=== PATIENT | male | born 1985 | race Caucasian/White ===

== ENCOUNTER 2019-05-24 14:35 | Emergency (ER) | payer SELFPAY ==
[2019-05-24 15:07] VITALS: BP 126/74; PULSE 62; RESP 16; TEMP 36.3; O2SAT 98
[2019-05-24 15:24] VITALS: BMI 25.5
[2019-05-24 15:28] VITALS: BP 138/96; PULSE 83; RESP 16; TEMP 36.8; O2SAT 96
--- NOTE | 2019-05-24 15:30 | XRR_ITS ---
PROCEDURE INFORMATION: Exam: XR Right Hand Exam date and time: 05/24/2019 4:05 PM Age: 33 years old Clinical indication: Injury or trauma; Injury history: Smashed hand with pallet of salt; Initial encounter; Blunt trauma (contusions or hematomas; Right; Injury date: 05/20/19; Prior surgery; Surgery date: 6+ months; Additional info: Right hand injury TECHNIQUE: Imaging protocol: XR Right hand. Views: 1 or 2 views. COMPARISON: No relevant prior studies available. FINDINGS: Bones/joints: Neck negative for acute bony abnormality Soft tissues: Diffuse soft tissue edema is seen in the dorsal aspect of the hand XR/XR hand RT min 3V* [id number] IMPRESSION: No acute bone abnormality. Diffuse soft tissue edema dorsal aspect of the hand
--- NOTE | 2019-05-24 16:10 | W.ED.EXTPRO ---
HPI - Extremity Problem General: Chief complaint: Trauma Stated complaint: right hand pain Time Seen by Provider: 05/24/19 16:10 Source: patient Mode of arrival: ambulatory Limitations: no limitations History of Present Illness: HPI Narrative: States a few days ago he was lifting a heavy pallet and immediately felt pain in the back of his right hand. States he is continued to work but has noticed continued pain and continued swelling. Complaint: extremity pain Onset (ago): day(s) Pain Consistency: constant Location: right Relieving factors: nothing Exacerbating factors: nothing Associated symptoms: Reports no associated symptoms Review of Systems Musc: Reports: extremity pain and extremity swelling Neuro: Denies: numbness in extremities, weakness in extremities or changes in sensation PFSH ED PFSH: Statuses (acute, chronic, etc) shown below reflect problem list status as previously entered and may not be historically accurate Social History Smoking and tobacco status: current every day smoker Physical Exam Const: COMMON NORMALS: no apparent distress, average body habitus, oriented x3, alert and well nourished Extremity: OTHER: Patient has pain and swelling throughout the dorsum of his right hand; there is no redness, warmth present; patient maintains full range of motion Neuro: COMMON NORMALS: oriented x3 SENSORIUM/ORIENTATION: Yes alert Course Vital Signs: Vital signs: Vital Signs Temperature 98.3 F 05/24/19 17:26 Pulse Rate 81 05/24/19 17:26 Respiratory Rate 14 05/24/19 17:26 Blood Pressure 142/93 05/24/19 17:26 Pulse Oximetry 99 05/24/19 17:26 MDM - Extremity (Nontraumatic) Imaging Data^: R hand: Radiologist's impression: [address] [address] XRay Report Signed Patient: Piyush Conway Unit #: [id number] : 1985 Age/Sex: 33 / M ADM Date: 05/24/19 Loc: ER Room/Bed: Attending Dr: Ordering Provider/Ordering MD: Jeffy Lang DO Date of Service: 05/24/19 Procedure(s): XR hand RT 2V 18880 Accession Number(s): [id number] Report Number: [id number] PROCEDURE INFORMATION: Exam: XR Right Hand Exam date and time: 05/24/2019 4:05 PM Age: 33 years old Clinical indication: Injury or trauma; Injury history: Smashed hand with pallet of salt; Initial encounter; Blunt trauma (contusions or hematomas; Right; Injury date: 05/20/19; Prior surgery; Surgery date: 6+ months; Additional info: Right hand injury TECHNIQUE: Imaging protocol: XR Right hand. Views: 1 or 2 views. COMPARISON: No relevant prior studies available. FINDINGS: Bones/joints: Neck negative for acute bony abnormality Soft tissues: Diffuse soft tissue edema is seen in the dorsal aspect of the hand XR/XR hand RT 2V [id number] IMPRESSION: No acute bone abnormality. Diffuse soft tissue edema dorsal aspect of the hand Dictated By: Carter Lomas Signed By: Carter Lomas Signed Date/Time: 05/24/19 163 DD/ 163 Discharge Plan Discharge Patient Disposition: Home, Self-Care Clinical Impression: Hand sprain Qualifiers: Encounter type: initial encounter Laterality: right Qualified Code(s): S63.91XA - Sprain of unspecified part of right wrist and hand, initial encounter Condition: Stable Discharge Orders: Discharge Order (Routine); Ordered 05/24/19 Ordered By: Trina Sandoval Discharge Diet: Usual diet Discharge Activity: Increase activity as tolerated Activity Restrictions/Additional Instructions: KELSIE WRAP MOTRIN DIRECTED ICE 15-20 MINS EVERY OTHER HOUR ELEVATE MUCH POSSIBLE FOLLOWUP WITH PRIMARY CARE IN 1 WEEK FOR CONTINUED PAIN Discharge Date/Time: 05/24/19 17:27 Coding Level of Care Code ED Deputy Sheriff Generalist for Yasmine Chavez
[2019-05-24 16:23] VITALS: BMI 25.8
[2019-05-24 17:26] VITALS: BP 142/93; PULSE 81; RESP 14; TEMP 36.8; O2SAT 99
== END 2019-05-24 17:27 | disposition home or self-care (01) ==
PROVIDERS: Emergency Provider Physician Assistant
DX: S63.91XA Sprain of unspecified part of right wrist and hand, initial encounter (principal); X50.0XXA Overexertion from strenuous movement or load, initial encounter; F17.210 Nicotine dependence, cigarettes, uncomplicated
CPT/HCPCS: 73120; 73130; 99281

== ENCOUNTER 2019-11-11 20:26 | Emergency (ER) | payer SELFPAY ==
[2019-11-11 20:28] VITALS: BP 148/96; PULSE 102; RESP 22; TEMP 36.9; O2SAT 95; BMI 24.3
--- NOTE | 2019-11-11 20:29 | ECG_ITS ---
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 Measurements Intervals [place] Rate: 109 P: 70 ID: 128 QRS: 71 QRSD: 86 T: 52 QT: 320 QTc: 431 Interpretive Statements SINUS TACHYCARDIA ABNORMAL RHYTHM ECG Compared to ECG 05/29/2016 10:14:20 Sinus rhythm no longer present Electronically Signed On 11-12-2019 8:04:46 CDT by Pedro Mistry M.D. [id number]
--- NOTE | 2019-11-11 20:51 | ED_ITS ---
HPI - Seizure General: Chief Complaint: Seizure Stated Complaint: etoh Time Seen by Provider: 11/11/19 20:26 Source: patient and EMS Mode of arrival: EMS Limitations: no limitations History of Present Illness: HPI Narrative: 4-year-old male who had a history of seizures in the past. He states he is to take Dilantin has not been taking it for years. Patient states he had a witnessed seizure tonight roughly 30 minutes ago. He denies any head pain states he feels much improved currently. He has no complaints currently. He states he drank 1 beer tonight. He denies any vomiting or diarrhea. MD complaint: seizure Onset (ago): minute(s) Associated symptoms: Deny chest pain, chills or fever(s) Review of Systems Const: Denies: fever(s), chills, body aches or change in appetite Eyes: Denies: blurry vision or eye discomfort ENMT: Denies: throat pain or dental pain Card: Denies: chest pain Resp: Denies: dyspnea GI: Denies: abdominal pain, nausea, vomiting or diarrhea : Denies: dysuria Musc: Denies: neck pain or back pain Skin/Breast: Denies: rash Neuro: Denies: headache(s) Psych: Denies: depression Jesús/Lymph: Denies: easy bruising All/Imm: Denies: urticaria PFSH ED PFSH: Social History Smoking and tobacco status: current every day smoker Physical Exam Const: COMMON NORMALS: no acute distress, patient oriented x3 and healthy appearing HENMT: COMMON NORMALS: normocephalic and atraumatic HEAD & SCALP: normocephalic and atraumatic Eye: COMMON NORMALS: Equal, round and reactive pupils present and EOMs intact bilaterally PUPIL: Yes Equal, round and reactive pupils present Neck/C-Spine: COMMON NORMALS: full ROM and supple Chest: COMMONS NORMALS: normal inspection of the chest and normal palpation of entire chest wall Resp: COMMON NORMALS: normal respiratory effort, No retractions, No use of accessory muscles and clear to auscultation bilaterally AUSCULTATION: clear to auscultation bilaterally Cardio: COMMON NORMALS: regular rate, regular rhythm and No murmurs present (Cardio) RATE: regular rate RHYTHM: regular rhythm GI: COMMON NORMALS: Normal to inspection, nondistended, normoactive bowel sounds present, Soft to palpation, non-tender and no masses PALPATION: Yes Soft to palpation Extremity: COMMON NORMALS: normal to inspection and full ROM Neuro: COMMON NORMALS: patient oriented x3, moves all extremities and no focal motor deficits Psych: COMMON NORMALS: mental status grossly normal, Normal thought process present and cooperative THOUGHT PROCESS: Normal thought process present Skin: COMMON NORMALS: no rashes or lesions noted and no wounds GENERAL SKIN EXAM: no rashes or lesions noted Course Vital Signs: Vital signs: Vital Signs Temperature 98.5 F 11/11/19 20:28 Pulse Rate 102 H 11/11/19 20:28 Respiratory Rate 22 H 11/11/19 20:28 Blood Pressure 148/96 11/11/19 20:28 Pulse Oximetry 95 11/11/19 20:28 MDM - Seizure MDM Narrative: Medical decision making narrative: Patient presents with a seizure. Patient electrolytes are normal here like to go home. We will start him back on Dilantin. He is to follow-up with a primary care doctor Dr. Schafer in 4 to 7 days. He is return if worsening. He had no head injury. Lab Data: Labs: Lab Results 11/11/19 Range/Units 20:34 Sodium 140 (136-145) mmol/L Potassium 3.7 (3.5-5.1) mmol/L Chloride 104 (98-107) mmol/L Carbon Dioxide 22 (22-29) mmol/L Anion Gap 17.7 (5-19) BUN 8 (6-20) mg/dL Creatinine 0.7 (0.7-1.2) mg/dL GFR Calculation 130.7 H (90-130) mL/min Glucose 107 (65-115) mg/dL Calculated Osmolal ity 286 (285-295) mOsm/k g Calcium 9.1 (8.5-10.5) mg/dL EKG Data^: EKG 1: Attestation: I personally reviewed and interpreted this EKG as follows: EKG interpretation date: 11/11/19 EKG interpretation time: 21:03 Interpretation: sinus tach hr [address] or t wave abnormalities qrs 86 qtc 384 Discharge Plan Discharge Patient Disposition: Home, Self-Care Clinical Impression: Generalized seizure Condition: Stable Prescriptions: New Dilantin Extended 100 mg capsule 100 mg PO DAILY Qty: 30 RF: 0 Discharge Orders: Discharge Order (Routine); Ordered 11/11/19 Ordered By: Torito Moscoso Referrals: Irina Schafer MD [Physician] - 1-3 days Discharge Diet: Advance as tolerated Discharge Activity: Resume usual activity Patient Instructions: Seizures Coding Level of Care Code ED Web Application Dev Specialist for Chg Fwd Exam Comprehensive
[2019-11-11 21:02] LABS: Anion Gap 17.7 (5-19); Blood Urea Nitrogen 8 mg/dL (6-20); Calcium 9.1 mg/dL (8.5-10.5); Carbon Dioxide 22 mmol/L (22-29); Chloride 104 mmol/L (98-107); Glomerular Filtration Rate 130.7 mL/min (90-130); Glucose 107 mg/dL (65-115); Osmolality Calculated 286 mOsm/kg (285-295); Potassium 3.7 mmol/L (3.5-5.1); Sodium 140 mmol/L (136-145)
--- NOTE | 2019-11-12 05:00 | PC.NURSE ---
upon ED arrival, pt slightly confused, unaware of events leading to arrival, oriented to self. Pt did state he did have hx of sz but it has been a couple of years since he last had one. Pt did state he has been out of his meds for a while , but he did not think he needed to still take them. After initial assessment, pt becoming more oriented, GCS 15, stating he no longer wanted to stay in the ED. Pt able to answer questions regarding self, time and place. notified. agreeable to d/c with Rx for dilantin. Pt answered questions during d/c, left dept without further incident
[2019-11-12 05:08] VITALS: BP 140/90; PULSE 86; RESP 18; O2SAT 95
--- NOTE | 2019-11-12 05:14 | PC.NURSE ---
i agree with this assessment
== END 2019-11-11 21:22 | disposition home or self-care (01) ==
PROVIDERS: Emergency Provider Emergency Medicine
DX: G40.89 Other seizures (principal); F17.210 Nicotine dependence, cigarettes, uncomplicated
CPT/HCPCS: 12345; 80048; 93005; 99283

== ENCOUNTER 2019-11-26 14:57 | Emergency (ER) | payer SELFPAY ==
--- NOTE | 2019-11-26 15:13 | CTR_ITS ---
PROCEDURE INFORMATION: Exam: CT Head Without Contrast Exam date and time: 11/26/2019 3:30 PM Age: 34 years old Clinical indication: Syncope and collapse; Patient HX: Syncope vs seizure HX of seizure 13 years ago TECHNIQUE: Imaging protocol: Computed tomography of the head without contrast. Radiation optimization: All CT scans at this facility use at least one of these dose optimization techniques: automated exposure control; mA and/or kV adjustment per patient size (includes targeted exams where dose is matched to clinical indication); or iterative reconstruction. COMPARISON: No relevant prior studies available. RADIATION DOSE METRICS: Total DLP (mGy-cm): 740.09 FINDINGS: Brain: No hemorrhage. No edema, mass effect or midline shift. Ventricles: No ventriculomegaly. Bones/joints: No acute fracture. Sinuses: Mucosal opacification of the ethmoid air cells. Mild mucosal thickening of the sphenoid sinuses. Mastoid air cells: No mastoid effusion. Soft tissues: Unremarkable. CT/CT head wo con* [id number] IMPRESSION: No acute intracranial abnormality. Radiation Dose CTDIVOL = (mGy): DLP = 740.09 (mGy-cm)
[2019-11-26] MEDS: sodium chloride 0.9% 1,000 ML 999 ML IV (15:27)
[2019-11-26 15:28] VITALS: BP 139/99; PULSE 103; RESP 18; O2SAT 95
--- NOTE | 2019-11-26 15:29 | W.ED.SEIZURE ---
HPI - Seizure General: Chief Complaint: Seizure Stated Complaint: SEIZURE Time Seen by Provider: 11/26/19 15:12 History of Present Illness: HPI Narrative: Patient has had at least one seizure today. He was postictal initially upon arrival to the ER shortly became awake alert and oriented. Patient admits to alcohol consumption today. MD complaint: seizure Onset (ago): minute(s) Description of Episode: loss of consciousness and tonic-clonic movement Witnessed: Yes - by Bystander Trauma: No Seizure History: Yes Possible Precipitating Event: stress Treatments prior to arrival: none Review of Systems General: Reports: 10 or more systems reviewed and unremarkable except in HPI and below PFSH ED PFSH: Social History Smoking and tobacco status: current every day smoker Physical Exam Const: COMMON NORMALS: no acute distress, patient oriented x3, no limitations and alert HENMT: COMMON NORMALS: normocephalic, atraumatic, external ears normal and Normal external nose present HEAD & SCALP: normocephalic and atraumatic FACE & SINUS: normal facial exam NOSE: Normal external nose present EXTERNAL EAR: Yes external ears normal MOUTH: Normal oral and palatal mucosa present Neck/C-Spine: COMMON NORMALS: full ROM, no lymphadenopathy, supple, no meningeal signs and no JVD GENERAL: Yes normal visual inspection Resp: COMMON NORMALS: normal respiratory effort, No retractions, No use of accessory muscles and clear to auscultation bilaterally AUSCULTATION: clear to auscultation bilaterally Cardio: COMMON NORMALS: no JVD, regular rate and regular rhythm RATE: regular rate RHYTHM: regular rhythm GI: COMMON NORMALS: Normal to inspection, nondistended, normoactive bowel sounds present, Soft to palpation, non-tender, No hepatosplenomegaly present and no masses INSPECTION: Yes normal to inspection AUSCULTATION: Yes normoactive bowel sounds PALPATION: Yes Soft to palpation and Yes No hepatosplenomegaly present PERCUSSION: normal to percussion : COMMON NORMALS: Yes no CVA tenderness BLADDER/KIDNEY EXAM: Yes no CVA tenderness Back/Pelvis: COMMON NORMALS: no CVA tenderness, thoracic and lumbar spine normal to inspection, no thoracic nor lumbar tenderness, thoraco-lumbar ROM normal and straight leg raise negative bilaterally Extremity: COMMON NORMALS: normal to inspection, full ROM, capillary refill normal, no joint enlargement, no clubbing, cyanosis or edema, no calf tenderness and no pedal edema Neuro: COMMON NORMALS: patient oriented x3, moves all extremities, no focal motor deficits and no sensory deficits noted SENSORIUM/ORIENTATION: Yes alert MENINGEAL SIGNS: Yes no meningeal signs Psych: COMMON NORMALS: mental status grossly normal, Normal thought process present, cooperative, normal affect and speech normal SPEECH: Yes normal speech THOUGHT PROCESS: Normal thought process present Skin: COMMON NORMALS: no rashes or lesions noted, no wounds, turgor normal, no jaundice, no petechiae and no mottling GENERAL SKIN EXAM: no rashes or lesions noted and turgor normal Course Vital Signs: Vital signs: Vital Signs Pulse Rate 103 H 11/26/19 15:28 Respiratory Rate 18 11/26/19 15:28 Blood Pressure 139/99 11/26/19 15:28 Pulse Oximetry 95 11/26/19 15:28 MDM - Seizure Lab Data: Labs: Lab Results 11/26/19 Range/Units 14:48 WBC 7.6 (4.0-10.0) 10^3/ uL RBC 4.82 (4.1-5.3) 10^6/u L Hgb 16.7 H (11.7-16.6) g/dL Hct 48.1 (42.0-52.0) % MCV 99.8 H (80-94) fL MCH 34.6 H (28.0-34.0) pg MCHC 34.7 (30.0-36.0) g/dL RDW 12.2 (12.1-15.1) % Plt Count 287 (130-400) 10^3/c mm MPV 9.8 (7.4-10.4) fL Neut % (Auto) 44.2 % Lymph % (Auto) 43.8 % [place] % (Auto) 9.2 % Eos % (Auto) 1.3 % Baso % (Auto) 0.8 % Neut # (Auto) 3.36 (1.8-7.7) 10^3/u L Lymph # (Auto) 3.3 (0.8-4.8) 10^3/u L [place] # (Auto) 0.7 (0.2-0.9) 10^3/u L Eos # (Auto) 0.1 (0.0-0.8) 10^3/u L Baso # (Auto) 0.1 (0.0-0.1) 10^3/u L Nucleated RBC % (a uto) 0 % Nucleated RBCs # 0.0 /100WBC Discharge Plan Discharge Patient Disposition: Left Against Medical Advice Clinical Impression: Generalized seizure Condition: Stable Prescriptions: No Action Dilantin Extended 100 mg capsule 100 mg PO DAILY Qty: 30 RF: 0 Coding Level of Care Code ED Non Profit Director for Chg Fwd Exam Comprehensive
[2019-11-26 15:40] LABS: Basophils # 0.1 10^3/uL (0.0-0.1); Basophils % 0.8 %; Eosinophils # 0.1 10^3/uL (0.0-0.8); Eosinophils % 1.3 %; Hematocrit 48.1 % (42.0-52.0); Hemoglobin 16.7 g/dL (11.7-16.6); Lymphocytes # 3.3 10^3/uL (0.8-4.8); Lymphocytes % 43.8 %; Mean Corpuscular HGB Conc 34.7 g/dL (30.0-36.0); Mean Corpuscular Hemoglobin 34.6 pg (28.0-34.0); Mean Corpuscular Volume 99.8 fL (80-94); Mean Platelet Volume 9.8 fL (7.4-10.4); Monocytes # 0.7 10^3/uL (0.2-0.9); Monocytes % 9.2 %; Neutrophils # 3.36 10^3/uL (1.8-7.7); Neutrophils % 44.2 %; Nucleated Red Blood Cells % 0 %; Platelet Count 287 10^3/cmm (130-400); Red Blood Count 4.82 10^6/uL (4.1-5.3); Red Cell Distribution Width 12.2 % (12.1-15.1); White Blood Count 7.6 10^3/uL (4.0-10.0)
[2019-11-26 15:54] LABS: Lactate (Lactic Acid level) 2.1 mmol/L (0.5-2.2)
[2019-11-26 16:04] LABS: Alanine Aminotransferase 40 U/L (0-41); Albumin Level 4.7 g/dL (3.5-5.2); Alkaline Phosphatase 118 IU/L (40-130); Anion Gap 16.7 (5-19); Aspartate Amino Transferase 32 U/L (0-40); Blood Urea Nitrogen 8 mg/dL (6-20); Calcium 8.1 mg/dL (8.5-10.5); Carbon Dioxide 24 mmol/L (22-29); Chloride 108 mmol/L (98-107); Globulin 2.7 g/dL (1.3-4.6); Glucose 94 mg/dL (65-115); Lipase 30 U/L (13-60); Osmolality Calculated 296 mOsm/kg (285-295); Potassium 3.7 mmol/L (3.5-5.1); Sodium 145 mmol/L (136-145); Thyroid Stimulating Hormone 0.88 uIU/mL (0.27-4.20); Total Bilirubin 0.2 mg/dL (0.15-1.2); Total Protein 7.4 g/dL (6.6-8.7)
[2019-11-26 16:07] LABS: Alcohol Level 330 mg/dL (0-10)
== END 2019-11-26 15:54 | disposition left against medical advice (07) ==
LOC: ER 17:00
PROVIDERS: Emergency Provider Family Medicine
DX: G40.89 Other seizures (principal); Z53.21 Procedure and treatment not carried out due to patient leaving prior to being seen by health care provider; F17.210 Nicotine dependence, cigarettes, uncomplicated
CPT/HCPCS: 12345; 36415; 70450; 80053; 80307; 83605; 83690; 84443; 85025; 96360; 99283; J7030

== ENCOUNTER 2019-11-26 18:45 | Emergency (ER) | payer SELFPAY ==
[2019-11-26 18:49] VITALS: BMI 24.6
--- NOTE | 2019-11-26 18:50 | ED_ITS ---
HPI - Chest Pain General: Chief Complaint: Chest Pain Stated Complaint: CHEST PAIN Time Seen by Provider: 11/26/19 18:50 Source: patient Mode of arrival: EMS Limitations: no limitations History of Present Illness: HPI narrative: Patient is a 34-year-old male who presents to ED today for complaint of chest pain and palpitations as well as a fall. Patient was seen here earlier today after having a seizure and ended up leaving AMA. Patient does have a diagnosis of epilepsy. He was seen in our emergency department on 11/16 as well for complaints of a seizure and was placed back on his Dilantin that he had been off of for several years. Patient tells me after he got home he was standing and became very dizzy causing him to fall down a flight of stairs. Patient tells me he does recall the event fully. He states before the fall he began having chest pain and feeling like his heart was beating out of his chest. He states he is no longer having those symptoms. He reports neck pain following the fall. MD complaint: chest pain and other (Palpitations, seizure, fall) Associated symptoms: Reports palpitations; Deny abdominal pain, dyspnea, fever(s), nausea, syncope or vomiting Review of Systems Const: Denies: fever(s), chills, body aches or fatigue Eyes: Denies: change in vision, blurry vision, photophobia, floaters or seeing flashes Card: Reports: chest pain, palpitations, lightheadedness and pre-syncope; Denies: irregular heart rhythm, edema, swelling of feet/ankles, syncope, dyspnea on exertion, orthopnea, leg pain with exertion or acrocyanosis Resp: Denies: dyspnea, productive cough, non-productive cough, pain on inspiration, hemoptysis or chest congestion GI: Denies: abdominal pain, nausea, vomiting, hematemesis, heartburn or diarrhea : Denies: flank pain, difficulty urinating, dysuria, urinary frequency, urinary urgency, urinary hesitancy or urinary dribbling Musc: Reports: neck pain; Denies: back pain, extremity pain, extremity swelling, joint pain or joint swelling Skin/Breast: Denies: rash Neuro: Denies: headache(s), numbness in extremities, weakness in extremities, sensory changes, vertigo or confusion PFS ED PFSH: Social History (Reviewed 07/26/20 @ 15:30 by ELROY Ferguson Smoking and tobacco status: current every day smoker Physical Exam Const: COMMON NORMALS: no acute distress, average body habitus, patient oriented x3, no limitations, healthy appearing, alert and well nourished ORIENTATION/CONSCIOUSNESS: Yes oriented to person, Yes oriented to place and Yes oriented to time HENMT: COMMON NORMALS: normocephalic and atraumatic HEAD & SCALP: normocephalic and atraumatic FACE & SINUS: normal facial exam and sinuses nontender Eye: COMMON NORMALS: Equal, round and reactive pupils present, EOMs intact bilaterally, conjunctivae normal and no scleral icterus CONJUNCTIVA: Yes conjunctivae normal PUPIL: Yes Equal, round and reactive pupils present Neck/C-Spine: OTHER: arrives in c-collar; ROM not performed; pt TTP upper/mid c spine and L paraspinal muscles Chest: COMMONS NORMALS: normal inspection of the chest and normal palpation of entire chest wall Resp: COMMON NORMALS: normal respiratory effort and clear to auscultation bilaterally AUSCULTATION: clear to auscultation bilaterally Cardio: COMMON NORMALS: regular rate and regular rhythm RATE: regular rate RHYTHM: regular rhythm GI: COMMON NORMALS: Normal to inspection, nondistended, normoactive bowel sounds present, Soft to palpation, non-tender, No hepatosplenomegaly present and no masses PALPATION: Yes Soft to palpation and Yes No hepatosplenomegaly present Back/Pelvis: COMMON NORMALS: thoracic and lumbar spine normal to inspection, no thoracic nor lumbar tenderness and thoraco-lumbar ROM normal Extremity: COMMON NORMALS: normal to inspection and full ROM GENERAL: Yes normal exam except as noted Neuro: TUAN COMA SCALE: document GCS findings [place] coma scale eye opening: Spontaneous [place] coma scale verbal response: Orientated [place] coma scale motor response: Obey commands [place] coma scale total score: 15 COMMON NORMALS: patient oriented x3, CN's II-XII intact bilaterally, moves all extremities, no focal motor deficits, no sensory deficits noted and gait normal SENSORIUM/ORIENTATION: Yes alert, Yes oriented to person, Yes oriented to place and Yes oriented to time Skin: COMMON NORMALS: no rashes or lesions noted GENERAL SKIN EXAM: no rashes or lesions noted Course Vital Signs: Vital signs: Vital Signs Temperature 98.0 F 11/26/19 18:57 Pulse Rate 87 11/26/19 19:50 Respiratory Rate 16 11/26/19 19:32 Blood Pressure 126/84 11/26/19 19:55 Pulse Oximetry 96 11/26/19 19:50 MDM - Chest Pain MDM Narrative: Medical decision making narrative: Patient is leaving AMA yet again. Patient tells me he is tired and would like to go home. Patient was counseled on the risks of leaving AMA including neck injury/paralysis/ (patient removed his c-collar on his own), head injury, repeat seizures, status epilepticus, cardiac ischemia. Patient verbalizes understanding and would still like to leave AMA. Lab Data: Labs: Lab Results 11/26/19 11/26/19 11/26/19 Range/Units 19:22 19:22 19:22 WBC 7.4 (4.0-10.0) 10^3/ uL RBC 4.51 (4.1-5.3) 10^6/u L Hgb 15.9 (11.7-16.6) g/dL Hct 46.0 (42.0-52.0) % MCV 102.0 H (80-94) fL MCH 35.3 H (28.0-34.0) pg MCHC 34.6 (30.0-36.0) g/dL RDW 12.3 (12.1-15.1) % Plt Count 274 (130-400) 10^3/c mm MPV 9.3 (7.4-10.4) fL Neut % (Auto) 50.5 % Lymph % (Auto) 38.6 % [place] % (Auto) 8.4 % Eos % (Auto) 0.9 % Baso % (Auto) 0.9 % Neut # (Auto) 3.74 (1.8-7.7) 10^3/u L Lymph # (Auto) 2.9 (0.8-4.8) 10^3/u L [place] # (Auto) 0.6 (0.2-0.9) 10^3/u L Eos # (Auto) 0.1 (0.0-0.8) 10^3/u L Baso # (Auto) 0.1 (0.0-0.1) 10^3/u L Nucleated RBC % (a uto) 0 % Nucleated RBCs # 0.0 /100WBC Sodium 142 (136-145) mmol/L Potassium 3.8 (3.5-5.1) mmol/L Chloride 106 (98-107) mmol/L Carbon Dioxide 23 (22-29) mmol/L Anion Gap 16.8 (5-19) BUN 8 (6-20) mg/dL Creatinine 1.0 (0.7-1.2) mg/dL GFR Calculation 86.6 L (90-130) mL/min Glucose 103 (65-115) mg/dL Calculated Osmolal ity 290 (285-295) mOsm/k g Calcium 8.6 (8.5-10.5) mg/dL Total Bilirubin 0.2 (0.15-1.2) mg/dL AST 26 (0-40) U/L ALT 34 (0-41) U/L Alkaline Phosphata se 107 (40-130) IU/L Troponin T Baselin e 6 (0-15) ng/L Total Protein 6.8 (6.6-8.7) g/dL Albumin 4.8 (3.5-5.2) g/dL Globulin 2.0 (1.3-4.6) g/dL Salicylates 1.4 L (3-10) mg/dL Acetaminophen < 5.0 L (10-30) ug/mL Ethyl Alcohol 286 H (0-10) mg/dL Discharge Plan Discharge Patient Disposition: Left Against Medical Advice Clinical Impression: Generalized seizure, Heart palpitations, Acute alcohol intoxication, Dizziness, Acute neck pain Prescriptions: No Action Dilantin Extended 100 mg capsule 100 mg PO DAILY Qty: 30 RF: 0 Interventions: ED Discharge Assessment Last Done: 11/26/19 19:58 ED Charges Last Done: 11/26/19 19:58 Discharge Date/Time: 11/26/19 19:56 Coding Level of Care Code ED Kindergarten Paraprofessional for Yasmine Chavez
[2019-11-26 18:57] VITALS: BP 127/89; PULSE 107; RESP 16; TEMP 36.7; O2SAT 95
--- NOTE | 2019-11-26 19:00 | CTR_ITS ---
PROCEDURE INFORMATION: Exam: CT Head Without Contrast Exam date and time: 11/26/2019 7:11 PM Age: 34 years old Clinical indication: Injury or trauma; Initial encounter; Blunt trauma (contusions or hematomas); Consciousness not specified; Patient HX: Syncope episode resulting in fall down stairs; Additional info: Trauma/fell TECHNIQUE: Imaging protocol: Computed tomography of the head without contrast. Axial, coronal and sagittal reformatted images were created and reviewed. Radiation optimization: All CT scans at this facility use at least one of these dose optimization techniques: automated exposure control; mA and/or kV adjustment per patient size (includes targeted exams where dose is matched to clinical indication); or iterative reconstruction. COMPARISON: CT head wo con* [id number] 11/26/2019 3:24 PM RADIATION DOSE METRICS: Total DLP (mGy-cm): 742.25 FINDINGS: Brain: No CT evidence of acute intracranial hemorrhage or acute territorial infarction. No significant mass effect or midline shift. Basal cisterns patent. Ventricles: Normal in size and configuration. Bones/joints: No acute osseous abnormality. Sinuses: Mild to moderate polypoid mucosal thickening of the ethmoid air cells and paranasal sinuses. Mastoid air cells: Grossly unremarkable. Soft tissues: Grossly unremarkable. CT/CT head wo con* [id number]: 1[address] No CT evidence of acute intracranial pathology. 2. Additional findings, as above. Radiation Dose CTDIVOL = (mGy): DLP = 742.25 (mGy-cm)
--- NOTE | 2019-11-26 19:00 | CTR_ITS ---
PROCEDURE INFORMATION: Exam: CT Cervical Spine Without Contrast Exam date and time: 11/26/2019 7:11 PM Age: 34 years old Clinical indication: Injury or trauma; Initial encounter; Blunt trauma; Patient HX: Syncope episode resulting in fall down stairs; Additional info: Trauma/fell TECHNIQUE: Imaging protocol: Computed tomography images of the cervical spine without contrast. Axial, coronal and sagittal reformatted images were created and reviewed. Radiation optimization: All CT scans at this facility use at least one of these dose optimization techniques: automated exposure control; mA and/or kV adjustment per patient size (includes targeted exams where dose is matched to clinical indication); or iterative reconstruction. COMPARISON: No relevant prior studies available. RADIATION DOSE METRICS: Total DLP (mGy-cm): 544.91 FINDINGS: Vertebrae: Straightening of the normal cervical lordosis. Alignment anatomic. No CT evidence of acute fracture, dislocation or subluxation. Vertebral body heights maintained. Discs/Spinal canal/Neural foramina: Intervertebral disc spaces preserved. No significant spinal canal or neural foraminal stenosis. Soft tissues: Grossly unremarkable. Lungs: Grossly unremarkable. CT/CT cervical spin wo con* [id number] IMPRESSION: 1. No CT evidence of acute cervical spine traumatic injury. 2. Additional findings, as above. Radiation Dose CTDIVOL = (mGy): DLP = 544.91 (mGy-cm)
--- NOTE | 2019-11-26 19:01 | ECG_ITS ---
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 Measurements Intervals [place] Rate: 86 P: 67 CT: 153 QRS: 66 QRSD: 91 T: 45 QT: 340 QTc: 407 Interpretive Statements SINUS RHYTHM WITH SINUS ARRHYTHMIA Compared to ECG 11/11/2019 21:03:14 Sinus tachycardia no longer present Electronically Signed On 11-27-2019 21:29:15 CDT by Sivan Mercado M.D. [id number] f
[2019-11-26] MEDS: sodium chloride 0.9% 1,000 ML 999 ML IV (19:20)
[2019-11-26 19:29] LABS: Basophils # 0.1 10^3/uL (0.0-0.1); Basophils % 0.9 %; Eosinophils # 0.1 10^3/uL (0.0-0.8); Eosinophils % 0.9 %; Hemoglobin 15.9 g/dL (11.7-16.6); Lymphocytes # 2.9 10^3/uL (0.8-4.8); Lymphocytes % 38.6 %; Mean Corpuscular HGB Conc 34.6 g/dL (30.0-36.0); Mean Corpuscular Hemoglobin 35.3 pg (28.0-34.0); Mean Platelet Volume 9.3 fL (7.4-10.4); Monocytes # 0.6 10^3/uL (0.2-0.9); Monocytes % 8.4 %; Neutrophils # 3.74 10^3/uL (1.8-7.7); Neutrophils % 50.5 %; Nucleated Red Blood Cells % 0 %; Platelet Count 274 10^3/cmm (130-400); Red Blood Count 4.51 10^6/uL (4.1-5.3); Red Cell Distribution Width 12.3 % (12.1-15.1); White Blood Count 7.4 10^3/uL (4.0-10.0)
[2019-11-26 19:32] VITALS: BP 135/96; PULSE 100; RESP 16; O2SAT 95
--- NOTE | 2019-11-26 19:36 | PC.NURSE ---
patient to CT
[2019-11-26 19:42] VITALS: BP 126/84
[2019-11-26 19:45] VITALS: BP 126/84
[2019-11-26 19:45] LABS: Alanine Aminotransferase 34 U/L (0-41); Albumin Level 4.8 g/dL (3.5-5.2); Alcohol Level 286 mg/dL (0-10); Alkaline Phosphatase 107 IU/L (40-130); Anion Gap 16.8 (5-19); Aspartate Amino Transferase 26 U/L (0-40); Blood Urea Nitrogen 8 mg/dL (6-20); Calcium 8.6 mg/dL (8.5-10.5); Carbon Dioxide 23 mmol/L (22-29); Chloride 106 mmol/L (98-107); Glomerular Filtration Rate 86.6 mL/min (90-130); Glucose 103 mg/dL (65-115); Osmolality Calculated 290 mOsm/kg (285-295); Potassium 3.8 mmol/L (3.5-5.1); Salicylate 1.4 mg/dL (3-10); Sodium 142 mmol/L (136-145); Total Bilirubin 0.2 mg/dL (0.15-1.2); Total Protein 6.8 g/dL (6.6-8.7)
--- NOTE | 2019-11-26 19:45 | PC.NURSE ---
patient back from CT
[2019-11-26 19:47] LABS: Troponin(5th) Baseline 6 ng/L (0-15)
[2019-11-26 19:48] LABS: Acetaminophen < 5.0 ug/mL (10-30)
[2019-11-26 19:50] VITALS: BP 126/84; PULSE 87; O2SAT 96
[2019-11-26 19:55] VITALS: BP 126/84
== END 2019-11-26 19:56 | disposition left against medical advice (07) ==
PROVIDERS: Emergency Provider Physician Assistant
DX: R00.2 Palpitations (principal); G40.89 Other seizures; F10.129 Alcohol abuse with intoxication, unspecified; R42 Dizziness and giddiness; M54.2 Cervicalgia; Y90.8 Blood alcohol level of 240 mg/100 ml or more; F17.210 Nicotine dependence, cigarettes, uncomplicated
CPT/HCPCS: 12345; 36415; 70450; 72125; 80053; 80307; 84484; 85025; 93005; 96360; 99283; 99284; J7030

== ENCOUNTER 2019-12-13 01:39 | Inpatient (IN) | payer SELFPAY ==
[2019-12-13] VITALS (94 sets, daily range): BP systolic 88–200; BP diastolic 58–121; PULSE 52–114; RESP 6–38; TEMP 36.6–37.2; O2SAT 88–100; BMI 21.7
--- NOTE | 2019-12-13 01:51 | XR_ITS ---
WS: [id number] Portable AP supine chest, 12/13/2019 Clinical Data: ams Comparison: Portable chest, 05/29/2016. Findings: No nodules, masses or effusions are seen. The heart is normal. The pulmonary vascularity is not increased. No pneumonia or pneumothorax is seen. Monitor leads are on the chest wall. XR/XR chest 1V portable [id number] Impression: Negative chest.
--- NOTE | 2019-12-13 01:52 | ECG_ITS ---
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 Measurements Intervals [place] Rate: 102 P: 66 NE: 153 QRS: 66 QRSD: 91 T: 50 QT: 338 QTc: 441 Interpretive Statements SINUS TACHYCARDIA ABNORMAL RHYTHM ECG Compared to ECG 11/26/2019 19:31:15 Sinus rhythm no longer present Sinus arrhythmia no longer present Electronically Signed On 12-13-2019 21:22:37 CDT by Teri Watson M.D. [id number] f
--- NOTE | 2019-12-13 01:56 | PC.NURSE ---
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
[2019-12-13 02:05] LABS: Basophils # 0.1 10^3/uL (0.0-0.1); Basophils % 0.8 %; Eosinophils # 0.1 10^3/uL (0.0-0.8); Eosinophils % 0.7 %; Hematocrit 46.8 % (42.0-52.0); Hemoglobin 16.2 g/dL (11.7-16.6); Lymphocytes # 2.3 10^3/uL (0.8-4.8); Mean Corpuscular HGB Conc 34.6 g/dL (30.0-36.0); Mean Corpuscular Hemoglobin 34.8 pg (28.0-34.0); Mean Corpuscular Volume 100.6 fL (80-94); Mean Platelet Volume 10.2 fL (7.4-10.4); Monocytes # 0.5 10^3/uL (0.2-0.9); Monocytes % 7.3 %; Neutrophils # 4.29 10^3/uL (1.8-7.7); Neutrophils % 58.9 %; Nucleated Red Blood Cells % 0 %; Platelet Count 263 10^3/cmm (130-400); Red Blood Count 4.65 10^6/uL (4.1-5.3); Red Cell Distribution Width 11.9 % (12.1-15.1); White Blood Count 7.3 10^3/uL (4.0-10.0)
--- NOTE | 2019-12-13 02:05 | ED_ITS ---
HPI - Overdose General: Chief Complaint: Overdose Stated Complaint: OD Time Seen by Provider: 12/13/19 01:42 Source: patient and EMS Mode of arrival: EMS Limitations: altered mental status History of Present Illness: HPI Narrative: Piyush is a 34-year-old male who comes in with an overdose. Patient overdosed on duloxetine, promethazine, Dilantin, clonazepam and gabapentin. The total amount of each of these medicines is not known. The patient took these medicines approximately 30 minutes prior to arrival but arrives to the ER somnolent. He does state that he did this in an effort to kill himself. He denies any alcohol or illicit drugs with this. Further history cannot be obtained as the patient is a poor historian and altered. Review of Systems General: Reports: ROS unobtainable due to mental status PFS ED PFSH: Social History Smoking and tobacco status: current every day smoker Physical Exam Const: EXAM LIMITATIONS: altered mental status GENERAL APPEARANCE: lethargic ORIENTATION/CONSCIOUSNESS: Yes lethargic HENMT: COMMON NORMALS: normocephalic, atraumatic, external ears normal, EAC's normal and Normal external nose present HEAD & SCALP: normal to inspection, normocephalic and atraumatic FACE & SINUS: normal facial exam and face symmetric NOSE: Normal external nose present and Normal nares present EXTERNAL EAR: Yes external ears normal EXTERNAL AUDITORY CANAL: EAC's normal MOUTH: Normal oral and palatal mucosa present, lip normal and tongue normal Eye: COMMON NORMALS: Equal, round and reactive pupils present and conjunctivae normal GENERAL EYE: appearance normal, both eyes and all related structures ALIGNMENT: Yes alignment normal PERIORBITAL: periorbital findings normal EYELID: eyelids normal CONJUNCTIVA: Yes conjunctivae normal SCLERA: sclerae normal PUPIL: Yes Equal, round and reactive pupils present Neck/C-Spine: COMMON NORMALS: full ROM, no lymphadenopathy, supple, no meningeal signs and no JVD GENERAL: Yes normal visual inspection and Yes trachea midline Chest: COMMONS NORMALS: normal inspection of the chest and normal palpation of entire chest wall Resp: COMMON NORMALS: normal respiratory effort, No retractions, No use of accessory muscles and clear to auscultation bilaterally EFFORT & INSPECTION: Yes able to speak in complete sentences and Yes symmetric chest movement AUSCULTATION: clear to auscultation bilaterally, no crackles, no rales, no rhonchi and no wheezes Cardio: COMMON NORMALS: no JVD, regular rate, regular rhythm, S1 normal heart sound present and S2 normal heart sound present RATE: regular rate RHYTHM: regular rhythm HEART SOUNDS: S1 normal heart sound present, S2 normal heart sound present, no click, no gallops, no murmurs, no rubs and abnormal split S2 GI: COMMON NORMALS: Soft to palpation and No hepatosplenomegaly present PALPATION: Yes Soft to palpation, No Tenderness to palpation present (GI), No Guarding due to palpation present (GI), No Rigid due to palpation, Yes No hepatosplenomegaly present, No Hernia present, No Palpable mass present and No Pulsatile mass present Extremity: COMMON NORMALS: normal to inspection, full ROM, capillary refill normal, no joint enlargement, no clubbing, cyanosis or edema and no calf tenderness Neuro: RICHY COMA SCALE: document GCS findings [place] coma scale eye opening: To sound Richy coma scale verbal response: Confused Richy coma scale motor response: Obey commands Richy coma scale total score: 13 COMMON NORMALS: moves all extremities, no focal motor deficits and no sensory deficits noted SENSORIUM/ORIENTATION: Yes lethargic MENINGEAL SIGNS: Yes no meningeal signs Skin: COMMON NORMALS: no rashes or lesions noted, turgor normal, no jaundice, no petechiae and no mottling GENERAL SKIN EXAM: no rashes or lesions noted and turgor normal Procedures Intubation Time out performed: Yes sedative: Etomidate Mg Given: 20 paralytic: Succinylcholine Mg Given: 150 ET Tube Size: 8 ET Tube Uncuffed: Yes Tube Secured Depth (cm): 23 Tube Secured Location: lips Tube Placement Confirmation: visualized tube passing through cords, equal breath sounds bilaterally, no breath sounds over epigastrium and confirmation by capnometry Patient Tolerated Procedure: well Intubation Complications: none Course ED course: 321 -patient has declined in his mentation. His GCS is currently 7. We will intubate to protect his airway. Vital Signs: Vital signs: Vital Signs Temperature 98.2 F 12/13/19 01:40 Pulse Rate 92 12/13/19 05:00 Respiratory Rate 12 12/13/19 05:00 Blood Pressure 106/76 12/13/19 05:00 Pulse Oximetry 96 08/12/20 05:00 MDM - Overdose MDM Narrative: Medical decision making narrative: Piyush is a 34-year-old male who came in with a suicidal gesture. He became more somnolent to the point he necessitated intubation. Patient tolerated this well. During suctioning by respiratory there was a piece of plastic present in the ET tube. This is why the chest x-ray was repeated but no sign of foreign body was seen. It is unclear whether this came from the NG tube or from the suction hose on the respiratory therapy ventilator circuit. Dr. Lezmaa has been made aware. She is agreeable to admission. Dr. Lezama agrees to follow Dilantin level as poison control has indicated we will need to sample every 4-6 hours until the Dilantin level is falling. Lab Data: Attestation: I reviewed the patient's lab results. Labs: Lab Results 12/13/19 12/13/19 12/13/19 Range/Units 01:44 01:44 01:44 WBC 7.3 (4.0-10.0) 10^3/ uL RBC 4.65 (4.1-5.3) 10^6/u L Hgb 16.2 (11.7-16.6) g/dL Hct 46.8 (42.0-52.0) % MCV 100.6 H (80-94) fL MCH 34.8 H (28.0-34.0) pg MCHC 34.6 (30.0-36.0) g/dL RDW 11.9 L (12.1-15.1) % Plt Count 263 (130-400) 10^3/c mm MPV 10.2 (7.4-10.4) fL Neut % (Auto) 58.9 % Lymph % (Auto) 32.0 % [place] % (Auto) 7.3 % Eos % (Auto) 0.7 % Baso % (Auto) 0.8 % Neut # (Auto) 4.29 (1.8-7.7) 10^3/u L Lymph # (Auto) 2.3 (0.8-4.8) 10^3/u L [place] # (Auto) 0.5 (0.2-0.9) 10^3/u L Eos # (Auto) 0.1 (0.0-0.8) 10^3/u L Baso # (Auto) 0.1 (0.0-0.1) 10^3/u L Nucleated RBC % (a uto) 0 % Nucleated RBCs # 0.0 /100WBC PT 13.00 (12.1-14.9) SECO NDS INR 0.95 (0.8-1.2) Specimen Type Sample Site ABG pH (7.35-7.45) ABG pCO2 (35-45) mmHg ABG pO2 (80.0-100.0) mmH g ABG HCO3 (22-26) mmol/L ABG O2 Saturation ABG Base Excess (-2.0-2.0) mmol/ L Nuno Test A-a O2 Gradient (5-10) mmHg Hematocrit (42-52) % Hgb O2 Saturation (95-100) % Carboxyhemoglobin (0.4-20.1) %THgb Methemoglobin (0.4-1.5) % Total Hemoglobin (14-18) g/dL Ionized Calcium (1.1-1.4) mmol/L O2 Delivery Device Metal Temperer ID Sodium 137 (136-145) mmol/L Potassium 3.3 L (3.5-5.1) mmol/L Chloride 103 (98-107) mmol/L Carbon Dioxide 22 (22-29) mmol/L Anion Gap 15.3 (5-19) BUN 7 (6-20) mg/dL Creatinine 1.0 (0.7-1.2) mg/dL GFR Calculation 86.6 L (90-130) mL/min Glucose 85 (65-115) mg/dL POC Glucose (70-110) mg/dL Calculated Osmolal ity 279 L (285-295) mOsm/k g Lactic Acid (0.5-2.2) mmol/L Calcium 8.5 (8.5-10.5) mg/dL Magnesium 2.2 (1.7-2.3) mg/dL Total Bilirubin 0.2 (0.15-1.2) mg/dL AST 23 (0-40) U/L ALT 33 (0-41) U/L Alkaline Phosphata se 123 (40-130) IU/L Creatine Kinase 118 (39-308) U/L Troponin T Baselin e (0-15) ng/L Total Protein 6.8 (6.6-8.7) g/dL Albumin 4.7 (3.5-5.2) g/dL Globulin 2.1 (1.3-4.6) g/dL Free T4 1.43 (0.82-1.77) ng/d L Urine Color (Yellow) Urine Appearance (CLEAR) Urine pH (5-7) Ur Specific Gravit y (1.005-1.030) Urine Protein (Negative) Urine Glucose (UA) (Normal) Urine Ketones (Negative) Urine Blood (Negative) Urine Nitrate (Negative) Urine Bilirubin (NEGATIVE) Urine Urobilinogen (Negative) mg/dL Ur Leukocyte Skylar ase (Negative) Urine RBC (0-2) /hpf Urine WBC (0-5) /hpf Ur Squamous Epith Cells (0-5) Amorphous Sediment Urine Bacteria (NONE) Urine Opiates Scre en (Negative) ng/mL Ur Barbiturates Sc reen (Negative) ng/mL Phenytoin (10-20) ug/mL Ur Phencyclidine S crn (Negative) ng/mL Ur Amphetamines Sc reen (Negative) ng/mL U Benzodiazepines Scrn (Negative) ng/mL Urine Cocaine Scre en (Negative) ng/mL U Marijuana (THC) Screen (Negative) ng/mL Ethyl Alcohol 113 H (0-10) mg/dL 12/13/19 12/13/19 12/13/19 Range/Units 01:44 01:44 02:00 WBC (4.0-10.0) 10^3/ uL RBC (4.1-5.3) 10^6/u L Hgb (11.7-16.6) g/dL Hct (42.0-52.0) % MCV (80-94) fL MCH (28.0-34.0) pg MCHC (30.0-36.0) g/dL RDW (12.1-15.1) % Plt Count (130-400) 10^3/c mm MPV (7.4-10.4) fL Neut % (Auto) % Lymph % (Auto) % [place] % (Auto) % Eos % (Auto) % Baso % (Auto) % Neut # (Auto) (1.8-7.7) 10^3/u L Lymph # (Auto) (0.8-4.8) 10^3/u L [place] # (Auto) (0.2-0.9) 10^3/u L Eos # (Auto) (0.0-0.8) 10^3/u L Baso # (Auto) (0.0-0.1) 10^3/u L Nucleated RBC % (a uto) % Nucleated RBCs # /100WBC PT (12.1-14.9) SECO NDS INR (0.8-1.2) Specimen Type Sample Site ABG pH (7.35-7.45) ABG pCO2 (35-45) mmHg ABG pO2 (80.0-100.0) mmH g ABG HCO3 (22-26) mmol/L ABG O2 Saturation ABG Base Excess (-2.0-2.0) mmol/ L Nuno Test A-a O2 Gradient (5-10) mmHg Hematocrit (42-52) % Hgb O2 Saturation (95-100) % Carboxyhemoglobin (0.4-20.1) %THgb Methemoglobin (0.4-1.5) % Total Hemoglobin (14-18) g/dL Ionized Calcium (1.1-1.4) mmol/L O2 Delivery Device Metal Temperer ID Sodium (136-145) mmol/L Potassium (3.5-5.1) mmol/L Chloride (98-107) mmol/L Carbon Dioxide (22-29) mmol/L Anion Gap (5-19) BUN (6-20) mg/dL Creatinine (0.7-1.2) mg/dL GFR Calculation (90-130) mL/min Glucose (65-115) mg/dL POC Glucose (70-110) mg/dL Calculated Osmolal ity (285-295) mOsm/k g Lactic Acid 2.6 H (0.5-2.2) mmol/L Calcium (8.5-10.5) mg/dL Magnesium (1.7-2.3) mg/dL Total Bilirubin (0.15-1.2) mg/dL AST (0-40) U/L ALT (0-41) U/L Alkaline Phosphata se (40-130) IU/L Creatine Kinase (39-308) U/L Troponin T Baselin e 6 (0-15) ng/L Total Protein (6.6-8.7) g/dL Albumin (3.5-5.2) g/dL Globulin (1.3-4.6) g/dL Free T4 (0.82-1.77) ng/d L Urine Color (Yellow) Urine Appearance (CLEAR) Urine pH (5-7) Ur Specific Gravit y (1.005-1.030) Urine Protein (Negative) Urine Glucose (UA) (Normal) Urine Ketones (Negative) Urine Blood (Negative) Urine Nitrate (Negative) Urine Bilirubin (NEGATIVE) Urine Urobilinogen (Negative) mg/dL Ur Leukocyte Skylar ase (Negative) Urine RBC (0-2) /hpf Urine WBC (0-5) /hpf Ur Squamous Epith Cells (0-5) Amorphous Sediment Urine Bacteria (NONE) Urine Opiates Scre en (Negative) ng/mL Ur Barbiturates Sc reen (Negative) ng/mL Phenytoin 11.0 (10-20) ug/mL Ur Phencyclidine S crn (Negative) ng/mL Ur Amphetamines Sc reen (Negative) ng/mL U Benzodiazepines Scrn (Negative) ng/mL Urine Cocaine Scre en (Negative) ng/mL U Marijuana (THC) Screen (Negative) ng/mL Ethyl Alcohol (0-10) mg/dL 12/13/19 12/13/19 12/13/19 Range/Units 02:03 02:11 04:13 WBC (4.0-10.0) 10^3/ uL RBC (4.1-5.3) 10^6/u L Hgb (11.7-16.6) g/dL Hct (42.0-52.0) % MCV (80-94) fL MCH (28.0-34.0) pg MCHC (30.0-36.0) g/dL RDW (12.1-15.1) % Plt Count (130-400) 10^3/c mm MPV (7.4-10.4) fL Neut % (Auto) % Lymph % (Auto) % [place] % (Auto) % Eos % (Auto) % Baso % (Auto) % Neut # (Auto) (1.8-7.7) 10^3/u L Lymph # (Auto) (0.8-4.8) 10^3/u L [place] # (Auto) (0.2-0.9) 10^3/u L Eos # (Auto) (0.0-0.8) 10^3/u L Baso # (Auto) (0.0-0.1) 10^3/u L Nucleated RBC % (a uto) % Nucleated RBCs # /100WBC PT (12.1-14.9) SECO NDS INR (0.8-1.2) Specimen Type Arterial Sample Site Radial, right ABG pH 7.39 (7.35-7.45) ABG pCO2 40.1 (35-45) mmHg ABG pO2 92.1 (80.0-100.0) mmH g ABG HCO3 24.4 (22-26) mmol/L ABG O2 Saturation 98.2 ABG Base Excess -0.5 (-2.0-2.0) mmol/ L Nuno Test Pos A-a O2 Gradient 0.9 L (5-10) mmHg Hematocrit 50.5 (42-52) % Hgb O2 Saturation 84.9 L (95-100) % Carboxyhemoglobin 12.8 (0.4-20.1) %THgb Methemoglobin 0.7 (0.4-1.5) % Total Hemoglobin 16.5 (14-18) g/dL Ionized Calcium 1.1 (1.1-1.4) mmol/L O2 Delivery Device Room air Metal Temperer ID Harkr Sodium 144.0 H (136-145) mmol/L Potassium 3.9 (3.5-5.1) mmol/L Chloride (98-107) mmol/L Carbon Dioxide (22-29) mmol/L Anion Gap (5-19) BUN (6-20) mg/dL Creatinine (0.7-1.2) mg/dL GFR Calculation (90-130) mL/min Glucose 81.0 (65-115) mg/dL POC Glucose 80 (70-110) mg/dL Calculated Osmolal ity (285-295) mOsm/k g Lactic Acid (0.5-2.2) mmol/L Calcium (8.5-10.5) mg/dL Magnesium (1.7-2.3) mg/dL Total Bilirubin (0.15-1.2) mg/dL AST (0-40) U/L ALT (0-41) U/L Alkaline Phosphata se (40-130) IU/L Creatine Kinase (39-308) U/L Troponin T Baselin e (0-15) ng/L Total Protein (6.6-8.7) g/dL Albumin (3.5-5.2) g/dL Globulin (1.3-4.6) g/dL Free T4 (0.82-1.77) ng/d L Urine Color Yellow (Yellow) Urine Appearance Clear (CLEAR) Urine pH 6 (5-7) Ur Specific Gravit y 1.010 (1.005-1.030) Urine Protein Neg (Negative) Urine Glucose (UA) Norm (Normal) Urine Ketones Negative (Negative) Urine Blood Neg (Negative) Urine Nitrate Negative (Negative) Urine Bilirubin Neg (NEGATIVE) Urine Urobilinogen Norm (Negative) mg/dL Ur Leukocyte Skylar ase Negative (Negative) Urine RBC None (0-2) /hpf Urine WBC None (0-5) /hpf Ur Squamous Epith Cells None (0-5) Amorphous Sediment Not Reportable Urine Bacteria None (NONE) Urine Opiates Scre en (Negative) ng/mL Ur Barbiturates Sc reen (Negative) ng/mL Phenytoin (10-20) ug/mL Ur Phencyclidine S crn (Negative) ng/mL Ur Amphetamines Sc reen (Negative) ng/mL U Benzodiazepines Scrn (Negative) ng/mL Urine Cocaine Scre en (Negative) ng/mL U Marijuana (THC) Screen (Negative) ng/mL Ethyl Alcohol (0-10) mg/dL 12/13/19 Range/Units 04:15 WBC (4.0-10.0) 10^3/ uL RBC (4.1-5.3) 10^6/u L Hgb (11.7-16.6) g/dL Hct (42.0-52.0) % MCV (80-94) fL MCH (28.0-34.0) pg MCHC (30.0-36.0) g/dL RDW (12.1-15.1) % Plt Count (130-400) 10^3/c mm MPV (7.4-10.4) fL Neut % (Auto) % Lymph % (Auto) % [place] % (Auto) % Eos % (Auto) % Baso % (Auto) % Neut # (Auto) (1.8-7.7) 10^3/u L Lymph # (Auto) (0.8-4.8) 10^3/u L [place] # (Auto) (0.2-0.9) 10^3/u L Eos # (Auto) (0.0-0.8) 10^3/u L Baso # (Auto) (0.0-0.1) 10^3/u L Nucleated RBC % (a uto) % Nucleated RBCs # /100WBC PT (12.1-14.9) SECO NDS INR (0.8-1.2) Specimen Type Sample Site ABG pH (7.35-7.45) ABG pCO2 (35-45) mmHg ABG pO2 (80.0-100.0) mmH g ABG HCO3 (22-26) mmol/L ABG O2 Saturation ABG Base Excess (-2.0-2.0) mmol/ L Nuno Test A-a O2 Gradient (5-10) mmHg Hematocrit (42-52) % Hgb O2 Saturation (95-100) % Carboxyhemoglobin (0.4-20.1) %THgb Methemoglobin (0.4-1.5) % Total Hemoglobin (14-18) g/dL Ionized Calcium (1.1-1.4) mmol/L O2 Delivery Device Metal Temperer ID Sodium (136-145) mmol/L Potassium (3.5-5.1) mmol/L Chloride (98-107) mmol/L Carbon Dioxide (22-29) mmol/L Anion Gap (5-19) BUN (6-20) mg/dL Creatinine (0.7-1.2) mg/dL GFR Calculation (90-130) mL/min Glucose (65-115) mg/dL POC Glucose (70-110) mg/dL Calculated Osmolal ity (285-295) mOsm/k g Lactic Acid (0.5-2.2) mmol/L Calcium (8.5-10.5) mg/dL Magnesium (1.7-2.3) mg/dL Total Bilirubin (0.15-1.2) mg/dL AST (0-40) U/L ALT (0-41) U/L Alkaline Phosphata se (40-130) IU/L Creatine Kinase (39-308) U/L Troponin T Baselin e (0-15) ng/L Total Protein (6.6-8.7) g/dL Albumin (3.5-5.2) g/dL Globulin (1.3-4.6) g/dL Free T4 (0.82-1.77) ng/d L Urine Color (Yellow) Urine Appearance (CLEAR) Urine pH (5-7) Ur Specific Gravit y (1.005-1.030) Urine Protein (Negative) Urine Glucose (UA) (Normal) Urine Ketones (Negative) Urine Blood (Negative) Urine Nitrate (Negative) Urine Bilirubin (NEGATIVE) Urine Urobilinogen (Negative) mg/dL Ur Leukocyte Skylar ase (Negative) Urine RBC (0-2) /hpf Urine WBC (0-5) /hpf Ur Squamous Epith Cells (0-5) Amorphous Sediment Urine Bacteria (NONE) Urine Opiates Scre en Negative (Negative) ng/mL Ur Barbiturates Sc reen Positive H (Negative) ng/mL Phenytoin (10-20) ug/mL Ur Phencyclidine S crn Negative (Negative) ng/mL Ur Amphetamines Sc reen Negative (Negative) ng/mL U Benzodiazepines Scrn Negative (Negative) ng/mL Urine Cocaine Scre en Negative (Negative) ng/mL U Marijuana (THC) Screen Negative (Negative) ng/mL Ethyl Alcohol (0-10) mg/dL Imaging Data^: CXR: My impression: No acute cardiopulmonary findings Repeat CXR: Attestation: I personally reviewed and interpreted this imaging study as follows: My impression: No acute cardiopulmonary findings. ET tube with good placement. NG tube with good placement 2nd Repeat CXR: Attestation: I personally reviewed and interpreted this imaging study as follows: My impression: NG tube removed. ET tube with good placement. No sign of foreign body present. EKG Data^: EKG 1: Attestation: I personally reviewed and interpreted this EKG as follows: EKG interpretation date: 12/13/19 EKG interpretation time: 01:45 Interpretation: Sinus tachycardia at 102 beats a minute, normal axis, no acute ST-T wave changes. Discharge Plan Discharge Patient Disposition: Admitted As Inpatient Clinical Impression: Suicide attempt by multiple drug overdose Qualifiers: Encounter type: initial encounter Qualified Code(s): T50.912A - Poisoning by multiple unspecified drugs, medicaments and biological substances, intentional self-harm, initial encounter Condition: Stable Coding Level of Care Code ED Supervisor [employer] for Yasmine Chavez Exam Comprehensive
[2019-12-13] MEDS: sodium chloride 0.9% 1,000 ML 100 ML IV (02:06)
[2019-12-13 02:07] LABS: Glucose Point of Care 80 mg/dL (70-110)
[2019-12-13 02:11] LABS: INR 0.95 (0.8-1.2)
[2019-12-13 02:18] LABS: Lactic Sepsis W/Reflex 2.6 mmol/L (0.5-2.2)
[2019-12-13 02:21] LABS: ABG PCO2 40.1 mmHg (35-45); ABG PH Result 7.39 (7.35-7.45); Alveolar-Arterial Oxygen Gradi 0.9 mmHg (5-10); Arterial Blood Gas Hematocrit 50.5 % (42-52); Base Excess ABG -0.5 mmol/L (-2.0-2.0); Blood Gas Allen Test Pos; Blood Gas Sample Type Arterial; Carboxyhemoglobin 12.8 %THgb (0.4-20.1); HCO3 ABG 24.4 mmol/L (22-26); HGB O2 Sat 84.9 % (95-100); Ionized Calcium Level - ABG 1.1 mmol/L (1.1-1.4); Methemoglobin 0.7 % (0.4-1.5); Oxygen Saturation ABG 98.2; PO2 ABG 92.1 mmHg (80.0-100.0); Potassium Level - ABG 3.9 mmol/L (3.5-5.0); Total Hemoglobin 16.5 g/dL (14-18)
[2019-12-13 02:22] LABS: Troponin(5th) Baseline 6 ng/L (0-15)
[2019-12-13 02:22] LABS: Blood Gas Operator Identificat HARKR; Blood Gas Sample Site Radial, right; Oxygen Device ROOM AIR
[2019-12-13 02:30] LABS: Alanine Aminotransferase 33 U/L (0-41); Albumin Level 4.7 g/dL (3.5-5.2); Alcohol Level 113 mg/dL (0-10); Alkaline Phosphatase 123 IU/L (40-130); Anion Gap 15.3 (5-19); Aspartate Amino Transferase 23 U/L (0-40); Blood Urea Nitrogen 7 mg/dL (6-20); Calcium 8.5 mg/dL (8.5-10.5); Carbon Dioxide 22 mmol/L (22-29); Chloride 103 mmol/L (98-107); Creatine Phosphokinase 118 U/L (39-308); Free T4 Free Thyroxine 1.43 ng/dL (0.82-1.77); Globulin 2.1 g/dL (1.3-4.6); Glomerular Filtration Rate 86.6 mL/min (90-130); Glucose 85 mg/dL (65-115); Magnesium 2.2 mg/dL (1.7-2.3); Osmolality Calculated 279 mOsm/kg (285-295); Potassium 3.3 mmol/L (3.5-5.1); Sodium 137 mmol/L (136-145); Total Bilirubin 0.2 mg/dL (0.15-1.2); Total Protein 6.8 g/dL (6.6-8.7)
[2019-12-13] MEDS: potassium chloride premix 40 MEQ/100 ML PREMIX 25 MEQ IV (02:41)
[2019-12-13 03:43] LABS: Reflex Lactate Order REFLEX LACTIC ORDERD
[2019-12-13] MEDS: succinylcholine 20 mg/mL SDV 10mL 150 MG IVP (03:45)
--- NOTE | 2019-12-13 03:47 | XR_ITS ---
WS: [id number] Portable AP supine chest, 12/13/2019, 0355 hours Clinical Data: Post intubation Comparison: Portable chest, today, 0215 hours. Findings: No nodules, masses or effusions are seen. The heart is normal. The pulmonary vascularity is not increased. No pneumonia or pneumothorax is seen. The endotracheal tube is above the estiven and t he nasogastric tube appears to end in the stomach. Monitor leads are on the chest wall. XR/XR chest 1V portable [id number] Impression: Satisfactory position of nasogastric tube and endotracheal tube.
--- NOTE | 2019-12-13 03:52 | ECG_ITS ---
[facility] Test Date: 2019-12-13 Pat Name: Piyush Conway Department: Room: Gender: Male [employer]: : 1985 Requested By: Juli Mahmood Order Number: [id number] Teresa MD: Teri Watson M.D. Measurements Intervals [place] Rate: 87 P: 67 WY: 142 QRS: 67 QRSD: 96 T: 54 QT: 366 QTc: 442 Interpretive Statements SINUS RHYTHM Compared to ECG 12/13/2019 01:45:07 Sinus tachycardia no longer present Electronically Signed On 12-13-2019 21:24:04 CDT by Teri Watson M.D. [id number] f
[2019-12-13] MEDS: propofol 1,000 MG/100 ML INJ 6.5 MG IV (03:55)
[2019-12-13] MEDS: sodium chloride 0.9% 1,000 ML 999 ML IV ×2 (04:10→06:25)
[2019-12-13 04:28] LABS: Amphetamines Screen Urine Negative (Negative); Barbiturates Screen Urine Positive (Negative); Benzodiazepines Screen Urine Negative (Negative); Cocaine Screen Urine Negative (Negative); Opiate Screen Urine Negative (Negative); PCP Screen Urine Negative (Negative); THC Screen Urine Negative (Negative)
[2019-12-13 04:29] LABS: Bilirubin Urine Neg (NEGATIVE); Blood Urine Neg (Negative); Glucose Urine UA Norm (Normal); Ketones Urine Negative (Negative); Leukocyte Esterase Urine Negative (Negative); Nitrate Urine Negative (Negative); Protein Urine Neg (Negative); Urine Appearance Clear (CLEAR); Urine Color Yellow (Yellow); Urobilinogen Urine Norm (Negative); pH Urine 6 (5-7)
--- NOTE | 2019-12-13 04:50 | XR_ITS ---
WS: [id number] Portable AP supine chest, 12/13/2019, 0436 hours Clinical Data: Trauma Comparison: Portable chest, 12/13/2019, 0355 hours Findings: No nodules, masses or effusions are seen. The heart is normal. The pulmonary vascularity is not increased. No pneumonia or pneumothorax is seen. The nasogastric tube has been removed. The endo tracheal tube remains above the estiven. There are monitor leads on the chest wall. XR/XR chest 1V portable [id number] Impression: Removal of nasogastric tube.
--- NOTE | 2019-12-13 05:29 | P.HP_ITS ---
Providers/Chief Complaint Admitting Physician: Gianni Primary Care Provider: unknown Chief Complaint: OD History of Present Illness Piyush Conway is a 34 year old male who presented to the emergency room after an overdose. He required intubation and so history is obtained from ER records. I am unable to get any information from him. It is reported that he overdosed on Cymbalta, Phenergan, Dilantin, Klonopin and gabapentin. Amount is unknown. He took the medicines about 30 minutes prior to coming into the emergency room, so around 1 AM and a suicidal attempt. He was somnolent on arrival and became progressively more so. He denied any alcohol or drug use. He has had several ER visits this year. At least twice he had complaint of a seizure, another time he complained of chest pain and another time he had some trauma to his right arm. Limited history is available in the records. Short time after patient was intubated, a small piece of plastic was suctioned from his ET tube. Origin of this is not clear at this time. Review of Systems General: Reports: ROS unobtainable due to endotracheal tube Medications/Allergies Home Medications Medication Instructions Recorded Confirmed Last Taken Type phenytoin sodium extended 100 mg PO DAILY #30 cap 11/11/19 Unknown Rx [Dilantin Extended] Allergies Allergy/AdvReac Type Severity Reaction Status Date / Time venom-wasp Allergy ALGY-Anaphy Verified 11/26/19 18:53 laxis PFSH Acute PFSH: Medical History (Updated 12/13/19 @ 05:47 by Joana Archer MD) Attention deficit hyperactivity disorder History of seizures Surgical History (Updated 12/13/19 @ 05:42 by Joana Archer MD) History of knee surgery Arthroscopy with reduction and internal fixation of a proximal tibial plateau fracture Social History Smoking and tobacco status: current every day smoker Supplemental PFSH Information: Family history not able to be obtained due to current medical condition Social history not able to be obtained due to current medical condition Vitals/I&O/Wt Last Vital Signs Temp 98.2 F 12/13/19 01:40 Pulse 92 12/13/19 05:00 Resp 12 12/13/19 05:00 BP 106/76 12/13/19 05:00 Pulse Ox 96 12/13/19 05:00 12/12/19 12/12/19 12/13/19 14:59 22:59 06:59 Intake Total 1001.625 / 1001.625 Balance 1001.625 / 1001.625 Weight last 48 hrs Weight 72.575 kg Physical Exam Const: OTHER: Sedated HENMT: OTHER: Patient with edema of both upper eyelids and either discoloration or bruising around both eyes, left more so than right. Left nares with dried blood. Otherwise normocephalic, ET tube in place, mucous membranes dry Eye: OTHER: Scleral injection pupils are equal bilaterally Neck/C-Spine: OTHER: Supple Resp: OTHER: Clear to auscultation bilaterally no rales rhonchi or wheezes noted Cardio: OTHER: Regular rate and rhythm, no murmurs gallops or rubs. Pulses 2+ and equal at both feet. GI: OTHER: Abdomen soft, nontender, nondistended, positive bowel sounds : OTHER: Normal external male genitalia, uncircumcised, Bowles in place Extremity: NARRATIVE EXTREMITY EXAM: No pitting edema Neuro: OTHER: Reflexes intact Skin: NARRATIVE SKIN EXAM: Patient with scattered tattoos, no acute injuries noted Data : 12/13/19 01:44 12/13/19 01:44 A&P Assessment and plan (1) Suicide attempt by multiple drug overdose: Multiple drugs including gabapentin, Cymbalta, Phenergan, Klonopin, Dilantin with currently therapeutic Dilantin level along with some alcohol. Drug screen was positive only for barbiturates. Status: Acute Qualifiers: Encounter type: initial encounter Qualified Code(s): T50.912A - Poisoning by multiple unspecified drugs, medicaments and biological substances, intentional self-harm, initial encounter (2) Airway compromise: Secondary to overdose, resulting in intubation Status: Acute (3) Foreign body in lung: Unclear exactly what has happened. ET tube was placed and during a deep suction of the lung a piece of plastic was obtained. At first it was thought that it might be the tip of the NG tube. NG tube was removed and remains intact. I have compared both NG tube being and are ventilator suction tubing and neither look like the piece of plastic that we have identified. It is not known if EMS suctioned or attempted to suction with anything. The piece of plastic looks medical and that it has openings although they are small. I suppose it is theoretically possible he swallowed something at home. We have found no equipment here that matches it and he was minimally responsive and not alone the entire time he was in the ER. Status: Acute Qualifiers: Encounter type: initial encounter Qualified Code(s): T17.808A - Unspecified foreign body in other parts of respiratory tract causing other injury, initial encounter (4) History of seizures: Records indicate this dating back as far as 2006 though have not found a definitive type of seizure or further information beyond the fact that he has been on Dilantin Status: Chronic Additional A&P Information Inpatient admission Ventilatory support currently Poison control was contacted from the emergency room. They recommended checking Dilantin level every 4-6 hours but otherwise supportive care for medications which he took CT of the chest to evaluate for any further foreign bodies in the lung 96-hour hold paperwork was completed in the emergency room, will need psychiatric evaluation once medically clear PPI SCDs for DVT prophylaxis Supportive care otherwise Full code Attestations Medical Necessity Statement*: Anticipate stay greater than 2 midnights in a patient who has overdosed on multiple substances requiring intubation. He admitted to suicidal attempt and will require psychiatric evaluation once medically stable Coding Level of Care Code Acute Harvest Field Ticketer for Yasmine Chavez Diagnoses Suicide attempt by multiple drug overdose T50.912A Encounter type: initial encounter Airway compromise J98.8 Foreign body in lung T17.808A Encounter type: initial encounter History of seizures Z87.898
--- NOTE | 2019-12-13 06:07 | CTR_ITS ---
PROCEDURE INFORMATION: Exam: CT Chest Without and With Contrast Exam date and time: 12/13/2019 6:46 AM Age: 34 years old Clinical indication: Injury or trauma; Injury history: Od, possible fb in lungs; Initial encounter; Unconscious; Additional info: Foreign body suctioned from lungs, ? more or damage, plastic TECHNIQUE: Imaging protocol: Computed tomography of the chest without and with intravenous contrast. Radiation optimization: All CT scans at this facility use at least one of these dose optimization techniques: automated exposure control; mA and/or kV adjustment per patient size (includes targeted exams where dose is matched to clinical indication); or iterative reconstruction. Contrast material: OMNIPAQUE 300; Contrast volume: 95 ml; Contrast route: INTRAVENOUS (IV); COMPARISON: CR XR chest 1V portable [id number] 12/13/2019 4:32 AM RADIATION DOSE METRICS: Total DLP (mGy-cm): 1083.74 FINDINGS: Tubes, catheters and devices: The endotracheal tube tip is approximately 3 cm above the estiven. Lungs: Bilateral posterior pulmonary partial passive atelectasis. A 5.2 x 3.7 mm noncalcified pulmonary ground-glass density is noted in the medial segment of the right middle lobe (LOC -155). Pleural space: No pneumothorax identified. Small right pleural effusion. Minimal left pleural effusion. Heart: Unremarkable. No cardiomegaly. No pericardial effusion. Mediastinal space: No mediastinal hematoma identified. Aorta: There is no evidence of aortic pseudoaneurysm or traumatic dissection. Lymph nodes: Triangular subpleural lymph node of the right upper lobe at the minor fissure. Bones/joints: No displaced rib fracture demonstrated. No acute thoracic spine or sternal fracture identified. Soft tissues: Unremarkable. Other findings: No radiopaque or radiolucent foreign body identified. CT/CT chest wo/w con [id number] IMPRESSION: 1. No radiopaque or radiolucent foreign body identified. 2. Groundglass opacity right middle lobe. No specific followup required/recommended (patient age less than 35 years, reference susana Arambula., Fleischner Society, 2017). 3. Small right pleural effusion. 4. Minimal left pleural effusion. Radiation Dose CTDIVOL = (mGy): DLP = 1083.74 (mGy-cm)
--- NOTE | 2019-12-13 07:15 | PC.NURSE ---
pt to CT by stretcher with tech
[2019-12-13] MEDS: iohexol 300 mg/mL 100 mL Btl IV (07:30)
--- NOTE | 2019-12-13 07:51 | XR_ITS ---
WS: [id number] ORA, 12/13/2019 Clinical Data: gastric tube placement Comparison: None. Findings: The nasogastric tube ends in the vicinity of the stomach. There is contrast material seen in the kidn eys, ureters and bladder. No bowel abnormalities are seen. XR/XR abdomen 1V* [id number] Impression: Endotracheal tube ends in region of the stomach.
--- NOTE | 2019-12-13 07:52 | ECG_ITS ---
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 Measurements Intervals [place] Rate: 63 P: 73 MD: 157 QRS: 57 QRSD: 102 T: 42 QT: 453 QTc: 465 Interpretive Statements SINUS RHYTHM ST ELEVATION, PROBABLY EARLY REPOLARIZATION [ST ELEVATION WITH NORMALLY INFLECTED T WAVE] Compared to ECG 12/13/2019 04:11:01 ST (T wave) deviation now present Early repolarization now present Electronically Signed On 12-13-2019 21:25:35 CDT by Teri Watson M.D. [id number]
[2019-12-13] MEDS: enoxaparin 40 mg/0.4 mL Syringe SUBCUT (08:16)
[2019-12-13] MEDS: famotidine 20 mg/2 mL INJ IVP ×2 (08:16→19:46)
[2019-12-13] MEDS: dextrose 5%-sod chloride 0.45% 1,000 ML 100 ML IV ×2 (08:17→18:01)
[2019-12-13 09:10] LABS: Phenytoin Dilantin 7.6 ug/mL (10-20)
--- NOTE | 2019-12-13 09:16 | P.PN_ITS ---
Subjective Subjective: Interval history: Chart reviewed, on ventilator support, imaging noted including CT scan of the chest. On 96-hour hold. So far has had 1500 mL urine output. CBC within normal limits, noted mild hypokalemia, otherwise normal electrolytes and renal function. ABG appropriate. Potassium replaced IV in ED. required minimal sedation, remains on vent support. Visited with mother at bedside who is quite concerned about recent events. Discussed that once patient is medically stable he will be evaluated by psychiatry as he will be on a 96-hour hold. Will attempt to extubate later this afternoon if possible. Reviewed medication bottles that were found with the patient, clonazepam, Cymbalta, promethazine and gabapentin are all prescribed to people other than the patient. All bottles are empty except for gabapentin which appears to be about half full. Details as to how patient access to this medications are unclear at this time. Medications: Reviewed: Yes Medication Review Details: Active Medications Generic Name Dose Route Start Last Admin Trade Name Freq PRN Reason Stop Dose Admin Acetaminophen 650 mg 12/13/19 07:47 Tylenol PO Q6H PRN MILD PAIN Docusate Sodium 100 mg 12/13/19 09:00 12/13/19 08:26 Colace PO Not Given BID NILO Enoxaparin Sodium 40 mg 12/13/19 07:47 12/13/19 08:16 Lovenox SUBCUT 40 mg Q24H NILO Administration Famotidine 20 mg 12/13/19 07:47 12/13/19 08:16 Pepcid Inj IVP 20 mg Q12H NILO Administration Fentanyl 50 mcg 12/13/19 07:47 Sublimaze IVP Q1H PRN SEVERE PAIN Propofol 1,000 mg in 100 m ls @ 0 mls/hr 12/13/19 03:30 12/13/19 04:10 Diprivan IV 25 mcg/kg/min .Q0M NILO 10.9 mls/hr Titration Protocol Per Protocol Dextrose/Sodium Ch loride 1,000 mls @ 100 m ls/hr 12/13/19 07:47 12/13/19 08:17 Dextrose 5%-Sod Chloride 0.45% IV 100 mls/hr .Q10H NILO Administration Ondansetron HCl 4 mg 12/13/19 07:47 Zofran IVP Q6H PRN NAUSEA AND VOMITI NG venom-wasp Allergy (Verified 11/26/19 18:53) ALGY-Anaphylaxis Vitals/I&O/Wt Last Vital Signs Temp 98.0 F 12/13/19 08:00 Pulse 74 12/13/19 07:55 Resp 16 12/13/19 07:55 BP 94/64 12/13/19 07:55 Pulse Ox 98 12/13/19 07:10 12/12/19 12/13/19 12/13/19 22:59 06:59 14:59 Intake Total 2101.625 / 2101.625 Output Total 1500 / 1500 Balance 2101.625 / 2101.625 -1500 / -1500 Weight last 48 hrs Weight 72.575 kg Physical Exam Const: COMMON NORMALS: no acute distress GENERAL APPEARANCE: comfortable and patient mechanically ventilated OTHER: -Sedated, on propofol at 20 mcg/kg/min HENMT: COMMON NORMALS: normocephalic and atraumatic HEAD & SCALP: normocephalic and atraumatic OTHER: -OG tube in place -Dried blood in bilateral naris -ETT-26 cm @ lip Eye: COMMON NORMALS: Equal, round and reactive pupils present, EOMs intact bilaterally and conjunctivae normal CONJUNCTIVA: Yes conjunctivae normal PUPIL: Yes Equal, round and reactive pupils present Neck/C-Spine: COMMON NORMALS: full ROM GENERAL: Yes normal visual inspection and Yes trachea midline Resp: COMMON NORMALS: normal respiratory effort, No retractions, No use of accessory muscles and clear to auscultation bilaterally EFFORT & INSPECTION: Yes able to speak in complete sentences, Yes symmetric chest movement and No tachypneic AUSCULTATION: clear to auscultation bilaterally OTHER: -On vent support (500/30%/6) Cardio: COMMON NORMALS: regular rate, regular rhythm, S1 normal heart sound present, S2 normal heart sound present and No murmurs present (Cardio) RATE: regular rate RHYTHM: regular rhythm HEART SOUNDS: S1 normal heart sound present and S2 normal heart sound present GI: COMMON NORMALS: Normal to inspection, nondistended, normoactive bowel sounds present and Soft to palpation PALPATION: Yes Soft to palpation Extremity: COMMON NORMALS: normal to inspection, no clubbing, cyanosis or edema and no pedal edema Neuro: OTHER: -sedated Psych: OTHER: -sedated Skin: COMMON NORMALS: no rashes or lesions noted, no jaundice, no petechiae and no mottling GENERAL SKIN EXAM: no rashes or lesions noted Data : 12/13/19 01:44 12/13/19 01:44 A&P Assessment and plan (1) Airway compromise: -Due to worsening somnolence was intubated in the ER and remains on ventilator support, sedation -Daily chest x-ray, ABG while on ventilator support -Wean off vent when appropriate -Close monitoring of respiratory status -Imaging reviewed including noted groundglass opacity of the right middle lobe -NPO, on IVF hydration -Hemodynamically stable, afebrile; continue to monitor vital signs Status: Acute (2) Foreign body in lung: -Noted small piece of plastic during suctioning following intubation, unclear source -No evidence of foreign body on CT chest -Abdominal x-ray ordered Status: Acute Qualifiers: Encounter type: initial encounter Qualified Code(s): T17.808A - Unspecified foreign body in other parts of respiratory tract causing other injury, initial encounter (3) Suicide attempt by multiple drug overdose: -Reportedly overdosed on Cymbalta, Phenergan, Dilantin, Klonopin, gabapentin. Unknown quantity -96-hour hold paperwork in chart, will require psychiatric evaluation once appropriate -Per poison control recommendations we will continue to monitor Dilantin levels every 6 hours, currently low -Urine drug screen positive for barbiturates -Alcohol level of 113 -Required intubation for airway protection; remains on ventilator support Status: Acute Qualifiers: Encounter type: initial encounter Qualified Code(s): T50.912A - P oisoning by multiple unspecified drugs, medicaments and biological substances, intentional self-harm, initial encounter (4) History of seizures: -Limited history available though has been seen in the ER previously for complaints of seizure-like activity and is on Dilantin Status: Chronic Additional A&P Information -Hypokalemia; replaced IV in ED and IVF contains KCl as well; repeat levels in AM -NPO -GI ppx with famotidine -DVT ppx with Lovenox, SCDs -Dispo: will need psychiatric evaluation -Code status: FULL code -ICU care due to vent support Attestations Medical Necessity Statement*: Patient requires hospitalization for continued management of medication overdose requiring mechanical ventilation due to need for airway protection. Time Spent in Patient Care: Greater than 35 minutes (>than 50% of time spent in counselling and/or direct pt care on unit) . Coding Level of Care Code Acute Cardiac Rehabilitation Specialist for Chg Fwd Exam Comprehensive Diagnoses Airway compromise J98.8 Foreign body in lung T17.808A Encounter type: initial encounter Suicide attempt by multiple drug overdose T50.912A Encounter type: initial encounter History of seizures Z87.898
[2019-12-13 10:11] LABS: Salicylate 0.6 mg/dL (3-10)
[2019-12-13 10:14] LABS: Troponin 5 6HR Delta 0 ng/L (0-12)
--- NOTE | 2019-12-13 10:34 | PC.CHAP ---
Pastoral Care Encounter/Spiritual Assessment Type of Contact [] Declined screening technician visit [] Patient/Family/Request visit [] Outpatient visit [] Follow-up visit [] Physician referral [] Code/Alert [x] Routine visit [] Staff referral [] Actively dying [] Patient sleeping [] Family support [] [] Out of room [] Palliative care [] [] Receiving care in room [] Pre-surgical visit [] Trauma [] Long length of stay [] ICU visit [x] Other: on respirator Relational/Emotional Strength [] Patient feels connected with others/family/visitors/staff [] Distress [] Loneliness/isolation [] Abandonment Spirituality of Patient [] Person of Katie [] Attends Baptism of their Katie [] Believes in Prayer [] Reads Bible or Taoist materials [] There are Spiritual issues to be addressed Youth Accommodation Support Worker Interventions [x] Prayer [] Active listening [] Non-anxious presence [] Spiritual/emotional support [] Crisis/trauma care [] Spiritual counseling [] Bereavement support [] Provided bereavement packet [] Provided Bible/devotional materials [] Provided toy/stuffed animal, coloring book to patient or family member [] Provided Communion [] Anointing/[place] [] Salvation [x] Completed spiritual assessment [] Other: Impact on Illness or Injury [] Angry [] Fearful [] Anxious [] Often cries [] Exhaustion [] Unable to work [] Unable to attend anglican [] Unable to walk/stand [] Unable to read [] Unable to drive [] Unable to eat/drink [] Unable to sleep [] Unable to be with family [] Patient intubated [] Other: Summary Time spent with patient
[2019-12-13 13:40] LABS: Phenytoin Dilantin 10.8 ug/mL (10-20)
[2019-12-13 19:09] LABS: Phenytoin Dilantin 10.5 ug/mL (10-20)
[2019-12-13 19:34] LABS: Acetaminophen < 5.0 ug/mL (10-30)
[2019-12-13] MEDS: fentaNYL 50 mcg/mL INJ 2mL IVP (19:46)
[2019-12-13] MEDS: propofol 1,000 MG/100 ML INJ 13.1 MG IV (19:47)
[2019-12-13] MEDS: propofol 1,000 MG/100 ML INJ 15.2 MG IV (21:39)
[2019-12-14] VITALS (28 sets, daily range): BP systolic 57–137; BP diastolic 33–88; PULSE 61–141; RESP 14–30; TEMP 37.2–37.8; O2SAT 88–99
[2019-12-14] MEDS: fentaNYL 50 mcg/mL INJ 2mL IVP (01:28)
[2019-12-14] MEDS: dextrose 5%-sod chloride 0.45% 1,000 ML 100 ML IV (02:49)
[2019-12-14] MEDS: propofol 1,000 MG/100 ML INJ 15.2 MG IV (03:38)
[2019-12-14 04:54] LABS: Basophils # 0.1 10^3/uL (0.0-0.1); Basophils % 0.3 %; Eosinophils # 0.1 10^3/uL (0.0-0.8); Eosinophils % 0.3 %; Hematocrit 42.5 % (42.0-52.0); Hemoglobin 14.2 g/dL (11.7-16.6); Lymphocytes % 6.7 %; Mean Corpuscular HGB Conc 33.4 g/dL (30.0-36.0); Mean Corpuscular Hemoglobin 34.6 pg (28.0-34.0); Mean Corpuscular Volume 103.7 fL (80-94); Monocytes # 0.6 10^3/uL (0.2-0.9); Monocytes % 4.3 %; Neutrophils # 12.75 10^3/uL (1.8-7.7); Neutrophils % 87.8 %; Nucleated Red Blood Cells % 0 %; Platelet Count 186 10^3/cmm (130-400); Red Cell Distribution Width 12.6 % (12.1-15.1); White Blood Count 14.5 10^3/uL (4.0-10.0)
[2019-12-14 05:28] LABS: Alanine Aminotransferase 19 U/L (0-41); Albumin Level 3.4 g/dL (3.5-5.2); Alkaline Phosphatase 103 IU/L (40-130); Anion Gap 9.4 (5-19); Aspartate Amino Transferase 15 U/L (0-40); Blood Urea Nitrogen 5 mg/dL (6-20); Calcium 7.7 mg/dL (8.5-10.5); Carbon Dioxide 24 mmol/L (22-29); Chloride 108 mmol/L (98-107); Creatinine Clr Calc Pharmacy 141.7313; Globulin 1.8 g/dL (1.3-4.6); Glucose 99 mg/dL (65-115); Osmolality Calculated 282 mOsm/kg (285-295); Potassium 3.4 mmol/L (3.5-5.1); Sodium 138 mmol/L (136-145); Total Bilirubin 0.3 mg/dL (0.15-1.2); Total Protein 5.2 g/dL (6.6-8.7)
[2019-12-14] MEDS: famotidine 20 mg/2 mL INJ IVP (07:53)
[2019-12-14] MEDS: enoxaparin 40 mg/0.4 mL Syringe SUBCUT (07:57)
--- NOTE | 2019-12-14 08:23 | PC.RESP ---
extubated pt extubated and placed on oxymask at 5lpm. tolerated well
--- NOTE | 2019-12-14 08:34 | PC.NURSE ---
pt was extubated. providided oral care, ice chips and sips of water as tolerated Pt is tolerating well.
--- NOTE | 2019-12-14 09:25 | PC.NURSE ---
A bag containing patients clothes was dropped off in ICU. Placed in closet of patient room.
--- NOTE | 2019-12-14 09:33 | PM.PN ---
Subjective Subjective: Interval history: Successfully weaned off ventilator and extubated this morning. Supplemental oxygen support provided, awake, alert, voice is mildly hoarse. Sitter at bedside following extubation. Had 700 mL urine output overnight. Noted to be tachycardic and tachypneic following extubation. Medications: Reviewed: Yes Medication Review Details: Active Medications Generic Name Dose Route Start Last Admin Trade Name Freq PRN Reason Stop Dose Admin Acetaminophen 650 mg 12/13/19 07:47 Tylenol PO Q6H PRN MILD PAIN Docusate Sodium 100 mg 12/13/19 09:00 12/13/19 17:57 Colace PO Not Given BID NILO Enoxaparin Sodium 40 mg 12/13/19 07:47 12/14/19 07:57 Lovenox SUBCUT 40 mg Q24H NILO Administration Famotidine 20 mg 12/13/19 07:47 12/14/19 07:53 Pepcid Inj IVP 20 mg Q12H NILO Administration Fentanyl 50 mcg 12/13/19 07:47 12/14/19 01:28 Sublimaze IVP 50 mcg Q1H PRN Administration SEVERE PAIN Propofol 1,000 mg in 100 m ls @ 0 mls/hr 12/13/19 03:30 12/14/19 03:38 Diprivan IV 35 mcg/kg/min .Q0M NILO 15.2 mls/hr Administration Protocol Per Protocol Dextrose/Sodium Ch loride 1,000 mls @ 100 m ls/hr 12/13/19 07:47 12/14/19 02:49 Dextrose 5%-Sod Chloride 0.45% IV 100 mls/hr .Q10H NILO Administration Ondansetron HCl 4 mg 12/13/19 07:47 Zofran IVP Q6H PRN NAUSEA AND VOMITI NG venom-wasp Allergy (Verified 11/26/19 18:53) ALGY-Anaphylaxis Vitals/I&O/Wt Last Vital Signs Temp 98.9 F 12/14/19 07:53 Pulse 124 H 12/14/19 09:00 Resp 28 H 12/14/19 09:00 BP 117/82 12/14/19 09:00 Pulse Ox 91 12/14/19 09:00 12/13/19 12/14/19 12/14/19 22:59 06:59 14:59 Intake Total 1022.162 / 1096.196 970.947 / 2067.143 Output Total 300 / 1800 700 / 2500 400 / 400 Balance 722.162 / -703.804 270.947 / -432.857 -400 / -400 Weight last 48 hrs Weight 72.575 kg Weight 72.575 kg Physical Exam Const: COMMON NORMALS: no acute distress, patient oriented x3 and alert GENERAL APPEARANCE: cooperative and comfortable ORIENTATION/CONSCIOUSNESS: Yes awake HENMT: COMMON NORMALS: normocephalic and atraumatic HEAD & SCALP: normocephalic and atraumatic OTHER: -voice is mildly hoarse Eye: COMMON NORMALS: Equal, round and reactive pupils present, EOMs intact bilaterally and conjunctivae normal CONJUNCTIVA: Yes conjunctivae normal PUPIL: Yes Equal, round and reactive pupils present Neck/C-Spine: COMMON NORMALS: full ROM GENERAL: Yes normal visual inspection and Yes trachea midline Resp: COMMON NORMALS: normal respiratory effort, No retractions, No use of accessory muscles and clear to auscultation bilaterally EFFORT & INSPECTION: Yes able to speak in complete sentences, Yes symmetric chest movement and No tachypneic AUSCULTATION: clear to auscultation bilaterally OTHER: -On 4 L NC following extubation Cardio: COMMON NORMALS: regular rhythm, S1 normal heart sound present, S2 normal heart sound present and No murmurs present (Cardio) RATE: tachycardic RHYTHM: regular rhythm HEART SOUNDS: S1 normal heart sound present and S2 normal heart sound present GI: COMMON NORMALS: Normal to inspection, nondistended, normoactive bowel sounds present and Soft to palpation PALPATION: Yes Soft to palpation Extremity: COMMON NORMALS: normal to inspection, no clubbing, cyanosis or edema and no pedal edema Neuro: COMMON NORMALS: patient oriented x3, moves all extremities, no focal motor deficits and no sensory deficits noted SENSORIUM/ORIENTATION: Yes alert Psych: COMMON NORMALS: mental status grossly normal, Normal thought process present, cooperative, normal affect and speech normal SPEECH: Yes normal speech THOUGHT PROCESS: Normal thought process present Skin: COMMON NORMALS: no rashes or lesions noted, no jaundice, no petechiae and no mottling GENERAL SKIN EXAM: no rashes or lesions noted Data : 12/14/19 04:35 12/14/19 04:35 A&P Assessment and plan (1) Airway compromise: -Due to worsening somnolence was intubated in the ER; weaned off vent and extubated this AM -Close monitoring of respiratory status; supplemental oxygen as needed -Imaging reviewed including noted groundglass opacity of the right middle lobe -NPO, on IVF hydration; bedside swallow evaluation once appropriate -Hemodynamically stable, afebrile; continue to monitor vital signs -noted leukocytosis which is likely reactive but with previously noted foreign body, will cover with empiric antibiotics Status: Acute (2) Foreign body in lung: -Noted small piece of plastic during suctioning following intubation, unclear source -No evidence of foreign body on CT chest -Abdominal x-ray ordered Status: Acute Qualifiers: Encounter type: initial encounter Qualified Code(s): T17.808A - Unspecified foreign body in other parts of respiratory tract causing other injury, initial encounter (3) Suicide attempt by multiple drug overdose: -Reportedly overdosed on Cymbalta, Phenergan, Dilantin, Klonopin, gabapentin. Unknown quantity -96-hour hold paperwork in chart, will require psychiatric evaluation once appropriate -Per poison control recommendations we will continue to monitor Dilantin levels every 6 hours, currently low -Urine drug screen positive for barbiturates -Alcohol level of 113; per mother, he likes to drink so s/p extubation will start on CIWA protocol, add MVI, folic acid, thiamine daily -Required intubation for airway protection; off vent Status: Acute Qualifiers: Encounter type: initial encounter Qualified Code(s): T50.912A - Poisoning by multiple unspecified drugs, medicaments and biological substances, intentional self-harm, initial encounter (4) History of seizures: -Limited history available though has been seen in the ER previously for complaints of seizure-like activity and is on Dilantin Status: Chronic Additional A&P Information -Hypokalemia; replaced IV in ED and IVF contains KCl as well; repeat levels in AM -NPO; bedside swallow, introduce PO intake if appropriate -GI ppx with famotidine -DVT ppx with Lovenox, SCDs -Dispo: will need psychiatric evaluation once medically stable -Code status: FULL code -ICU care due to 96 hr hold Attestations Medical Necessity Statement*: Patient requires hospitalization for continued care status post multidrug overdose with resulting respiratory compromise status post extubation earlier today. Time Spent in Patient Care: 16 - 35 minutes (>than 50% of time spent in counselling and/or direct pt care on unit). Critical Care Time: The high probability of a clinically significant, sudden or life threatening deterioration of the patient's [cardiovascular, respiratory] system(s) required my full and direct attention, intervention and personal management. The critical care time is as shown. This time is in addition to time spent performing any reported procedures but includes the following: [x] Data and vital sign review and interpretation [x] Patient assessment, examination and intervention [x] Documentation [x] Medication orders and management Critical Care Time (min): 15 Coding Level of Care Code Acute Records Management Assistant for Souleymaneg Fwd Diagnoses Airway compromise J98.8 Foreign body in lung T17.808A Encounter type: initial encounter Suicide attempt by multiple drug overdose T50.912A Encounter type: initial encounter History of seizures Z87.897
[2019-12-14] MEDS: folic acid 1 mg Tablet PO (10:13)
[2019-12-14] MEDS: thiamine 100 mg Tablet PO (10:15)
[2019-12-14] MEDS: multivitamin therapeutic Tablet 1 TAB PO (10:16)
[2019-12-14] MEDS: amoxicillin-clav 875-125 mg Tablet 1 TAB PO ×2 (10:17→17:18)
--- NOTE | 2019-12-14 10:25 | PC.NURSE ---
Patient received oral meds for first time since extubation. Patient tolerated well.
--- NOTE | 2019-12-14 10:34 | PC.NURSE ---
received order for removal of ayala catheter. Patient has impaired but improving coordination post extubation. Leaving Ayala in place at this time. Will remove when patient can safely ambulate.
[2019-12-14] MEDS: LORazepam 2 mg/mL INJ 1 mL IV (13:11)
[2019-12-14] MEDS: docusate sodium 100 mg Capsule PO (17:18)
--- NOTE | 2019-12-14 21:00 | PC.NURSE ---
Report received from Kylah Ivey RN. Patient is resting comfortably now with sitter at bedside. Vital signs are stable.
--- NOTE | 2019-12-14 21:07 | PM.EVENT ---
Event Note Event Note: Called patient was wanting to leave. He has 96-hour hold paperwork on board due to a suicidal gesture. He states that when he said he was trying to kill himself he was drunk. I think that probably is at least part of the situation. Nevertheless he has not been evaluated by psychiatry that I am aware of. I described to him what he was like when he was admitted to the emergency room and that he was unresponsive and not protecting his airway, requiring intubation. I explained to him that he could have that night if he had not had medical intervention. I let him know that he had been here for 2 days, 2 days which he will never get back in terms of his memory. He did not realize that things were as serious as they were when he came in. He has agreed to stay presently. He really wants to go out and have a cigarette. I have ordered a nicotine patch for him. Offered nicotine gum but he did not want that. We will give him some trazodone to help him sleep tonight. He has agreed to stay this evening knowing that he will be evaluated by psychiatry who will make ultimate determination about disposition. Nursing staff was in the room during this conversation. He is calm and cooperative with me and shook my hand on agreement. Event Notes Attestations Time Spent in Patient Care: less than 15 minutes 12 minutes extra care
[2019-12-14] MEDS: nicotine 21 mg Patch 1 PATCH TRANSDERMA (21:22)
[2019-12-14] MEDS: trazodone 50 mg Tablet PO (21:22)
--- NOTE | 2019-12-14 21:25 | PC.NURSE ---
Pt oriented to day and situation, and update on 96 HH status. Pt states he has never been 96d before and copy of rights given to pt. Room stripped, and physician at bedside to explain right. Trazodone and Nicotine patch ordered.
--- NOTE | 2019-12-14 22:28 | PC.NURSE ---
Spoke to Kaylie with poison control and updated on patient's condition.
[2019-12-14] MEDS: acetaminophen 325 mg Tablet 650 MG PO (22:48)
[2019-12-15] VITALS (16 sets, daily range): BP systolic 96–136; BP diastolic 58–94; PULSE 70–110; RESP 15–21; TEMP 36.7–37.4; O2SAT 89–95
--- NOTE | 2019-12-15 01:14 | PC.NURSE ---
Patient's belongings had medication bottles present. 55 Gabapentin 300 mg each counted in bottle with someone else's name on it. Empty Dilantin bottle that is in patient's name. Empty Clonazepam bottle in someone else's name. Empty Duloxetine bottle in someone else's name. Empty Promethazine bottle in someone else's name. Bottles placed in pyxis.
[2019-12-15 04:03] LABS: Basophils # 0.1 10^3/uL (0.0-0.1); Basophils % 0.4 %; Eosinophils % 0.1 %; Hematocrit 43.1 % (42.0-52.0); Hemoglobin 14.9 g/dL (11.7-16.6); Lymphocytes # 2.1 10^3/uL (0.8-4.8); Lymphocytes % 10.9 %; Mean Corpuscular HGB Conc 34.6 g/dL (30.0-36.0); Mean Corpuscular Hemoglobin 35.2 pg (28.0-34.0); Mean Corpuscular Volume 101.9 fL (80-94); Mean Platelet Volume 10.7 fL (7.4-10.4); Monocytes # 0.9 10^3/uL (0.2-0.9); Monocytes % 4.4 %; Neutrophils # 15.98 10^3/uL (1.8-7.7); Neutrophils % 83.5 %; Nucleated Red Blood Cells % 0 %; Platelet Count 181 10^3/cmm (130-400); Red Blood Count 4.23 10^6/uL (4.1-5.3); Red Cell Distribution Width 11.9 % (12.1-15.1); White Blood Count 19.2 10^3/uL (4.0-10.0)
--- NOTE | 2019-12-15 08:23 | PM.PN ---
Subjective Subjective: Interval history: Overnight, was insistent on leaving then talked down by Dr. Archer. Sitter remains at bedside, on 96 hr hold. VSS, on 2 L NC, previously tachycardic, now HR wnl since around 2300. Got dose of Trazodone as sleep aide. Will be evaluated by Dr. Sims. Noted leukocytosis, low grade temp-100.1 F yesterday around 1900, has been afebrile since. He was to be in good spirits during my evaluation early this morning, no complaints, weaned to room air. Denies SI, recalls being drunk but does not recall taking any prescription medications. Medications: Reviewed: Yes Medication Review Details: Active Medications Generic Name Dose Route Start Last Admin Trade Name Freq PRN Reason Stop Dose Admin Acetaminophen 650 mg 12/13/19 07:47 12/14/19 22:48 Tylenol PO 650 mg Q6H PRN Administration MILD PAIN Albuterol Sulfate 2.5 mg 12/14/19 21:06 Albuterol INHALATION Q4H.RESPIRATORY P RN SHORTNESS OF ARIANNE TH Amoxicillin/Clavul anate Potassium 1 tab 12/14/19 09:45 12/14/19 17:18 Augmentin 875-12 5 Mg PO 1 tab BID NILO Administration Protocol Docusate Sodium 100 mg 12/13/19 09:00 12/14/19 17:18 Colace PO 100 mg BID NILO Administration Enoxaparin Sodium 40 mg 12/13/19 07:47 12/14/19 07:57 Lovenox SUBCUT 40 mg Q24H NILO Administration Folic Acid 1 mg 12/14/19 09:45 12/14/19 10:13 Folic Acid PO 1 mg DAILY NILO Administration Lorazepam 1 mg 12/14/19 09:36 Ativan PO TID PRN ANXIETY Lorazepam 2 mg 12/14/19 09:42 12/14/19 13:11 Ativan IV 2 mg PROTOCOL PRN Administration ALCOWD Protocol Multivitamins Ther apeutic 1 tab 12/14/19 09:45 12/14/19 10:16 Multivitamin Tab PO 1 tab DAILY NILO Administration Nicotine 1 patch 12/14/19 21:10 12/14/19 21:22 Nicoderm 21 Mg P atch TRANSDERMA 1 patch DAILY NILO Administration Ondansetron HCl 4 mg 12/13/19 07:47 Zofran IVP Q6H PRN NAUSEA AND VOMITI NG Phenol 3 spray 12/14/19 23:57 Phenaseptic MUCOUS MEM Q2H PRN SORE THROAT Thiamine Mononitra te 100 mg 12/14/19 09:45 12/14/19 10:15 Vitamin B-1 PO 100 mg DAILY NILO Administration Trazodone HCl 50 mg 12/14/19 21:10 12/14/19 21:22 Desyrel PO 50 mg BEDTIME PRN Administration INSOMNIA venom-wasp Allergy (Verified 11/26/19 18:53) ALGY-Anaphylaxis Vitals/I&O/Wt Last Vital Signs Temp 98.1 F 12/15/19 08:00 Pulse 82 12/15/19 08:04 Resp 16 12/15/19 08:04 BP 106/67 12/15/19 08:00 Pulse Ox 93 12/15/19 08:04 12/14/19 12/15/19 12/15/19 22:59 06:59 14:59 Intake Total 480 / 1251.667 Output Total 1400 / 3450 Balance -920 / -2198.333 Weight last 48 hrs Weight 72.178 kg Weight 72.575 kg Physical Exam Const: COMMON NORMALS: no acute distress, patient oriented x3 and alert GENERAL APPEARANCE: cooperative and comfortable ORIENTATION/CONSCIOUSNESS: Yes awake HENMT: COMMON NORMALS: normocephalic and atraumatic HEAD & SCALP: normocephalic and atraumatic OTHER: -Hoarseness resolved Eye: COMMON NORMALS: Equal, round and reactive pupils present, EOMs intact bilaterally and conjunctivae normal CONJUNCTIVA: Yes conjunctivae normal PUPIL: Yes Equal, round and reactive pupils present Neck/C-Spine: COMMON NORMALS: full ROM GENERAL: Yes normal visual inspection and Yes trachea midline Resp: COMMON NORMALS: normal respiratory effort, No retractions, No use of accessory muscles and clear to auscultation bilaterally EFFORT & INSPECTION: Yes able to speak in complete sentences, Yes symmetric chest movement and No tachypneic AUSCULTATION: clear to auscultation bilaterally OTHER: -On RA Cardio: COMMON NORMALS: regular rhythm, S1 normal heart sound present, S2 normal heart sound present and No murmurs present (Cardio) RATE: tachycardic RHYTHM: regular rhythm HEART SOUNDS: S1 normal heart sound present and S2 normal heart sound present GI: COMMON NORMALS: Normal to inspection, nondistended, normoactive bowel sounds present and Soft to palpation PALPATION: Yes Soft to palpation Extremity: COMMON NORMALS: normal to inspection, no clubbing, cyanosis or edema and no pedal edema Neuro: COMMON NORMALS: patient oriented x3, moves all extremities, no focal motor deficits and no sensory deficits noted SENSORIUM/ORIENTATION: Yes alert Psych: COMMON NORMALS: mental status grossly normal, Normal thought process present, cooperative, normal affect and speech normal SPEECH: Yes normal speech THOUGHT PROCESS: Normal thought process present Skin: COMMON NORMALS: no rashes or lesions noted, no jaundice, no petechiae and no mottling GENERAL SKIN EXAM: no rashes or lesions noted Data : 12/15/19 03:10 12/15/19 03:56 A&P Assessment and plan (1) Airway compromise: -Due to worsening somnolence was intubated in the ER; weaned off vent and extubated 12/13 -Close monitoring of respiratory status; supplemental oxygen as needed -Imaging reviewed including noted groundglass opacity of the right middle lobe -off IVF; encourage oral hydration; bedside swallow evaluation and diet advanced -Hemodynamically stable, afebrile; continue to monitor vital signs -noted leukocytosis which is likely reactive but with previously noted foreign body, will cover with empiric antibiotics (day 2) Status: Acute (2) Foreign body in lung: -Noted small piece of plastic during suctioning following intubation, unclear source -No evidence of foreign body on CT chest -Abdominal x-ray unremarkable Status: Acute Qualifiers: Encounter type: initial encounter Qualified Code(s): T17.808A - Unspecified foreign body in other parts of respiratory tract causing other injury, initial encounter (3) Suicide attempt by multiple drug overdose: -Reportedly overdosed on Cymbalta, Phenergan, Dilantin, Klonopin, gabapentin. Unknown quantity -96-hour hold paperwork in chart, will require psychiatric evaluation once appropriate -Per poison control recommendations we will continue to monitor Dilantin levels every 6 hours, currently low -Urine drug screen positive for barbiturates -Alcohol level of 113; per mother, he likes to drink so s/p extubation on CIWA protocol, MVI, folic acid, thiamine daily -Required intubation for airway protection; off vent Status: Acute Qualifiers: Encounter type: initial encounter Qualified Code(s): T50.912A - Poisoning by multiple unspecified drugs, medicaments and biological substances, intentional self-harm, initial encounter (4) History of seizures: -Limited history available though has been seen in the ER previously for complaints of seizure-like activity and is on Dilantin Status: Chronic Additional A&P Information -Hypokalemia; replaced IV in ED and IVF contains KCl as well; repeat normalized -advance to regular diet -GI ppx with famotidine -DVT ppx with Lovenox, SCDs -Dispo: will need psychiatric evaluation once medically stable -Code status: FULL code -ICU care due to 96 hr hold; discussed with Dr. Sims, transferred to [facility] this afternoon. Attestations Medical Necessity Statement*: Patient requires hospitalization for continued care following alcohol intoxication and multiple drug overdose s/p extubation, including psychiatric evaluation. Time Spent in Patient Care: 16 - 35 minutes (>than 50% of time spent in counselling and/or direct pt care on unit). Coding Level of Care Code Acute Power System Dispatcher for Yasmine Fwmatthew Exam Comprehensive Diagnoses Airway compromise J98.8 Foreign body in lung T17.808A Encounter type: initial encounter Suicide attempt by multiple drug overdose T50.912A Encounter type: initial encounter History of seizures Z87.898
[2019-12-15 09:06] LABS: Potassium 3.6 mmol/L (3.5-5.1)
[2019-12-15] MEDS: enoxaparin 40 mg/0.4 mL Syringe SUBCUT (10:23)
[2019-12-15] MEDS: amoxicillin-clav 875-125 mg Tablet 1 TAB PO ×2 (10:26→18:08)
[2019-12-15] MEDS: nicotine 21 mg Patch 1 PATCH TRANSDERMA (10:27)
[2019-12-15] MEDS: multivitamin therapeutic Tablet 1 TAB PO (10:27)
[2019-12-15] MEDS: folic acid 1 mg Tablet PO (10:27)
[2019-12-15] MEDS: thiamine 100 mg Tablet PO (10:27)
[2019-12-15] MEDS: potassium chloride ER 10 mEq Tablet 40 MEQ PO (10:27)
--- NOTE | 2019-12-15 11:12 | PC.RESP ---
Smoking Cessation information sent to patient.
[2019-12-15] MEDS: docusate sodium 100 mg Capsule PO (18:08)
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
[2019-12-16 06:00] VITALS: BP 119/72; PULSE 67; RESP 18; TEMP 36.8; O2SAT 98
[2019-12-16 07:35] LABS: Basophils # 0.1 10^3/uL (0.0-0.1); Basophils % 0.4 %; Eosinophils # 0.2 10^3/uL (0.0-0.8); Eosinophils % 1.8 %; Hematocrit 43.4 % (42.0-52.0); Hemoglobin 15.1 g/dL (11.7-16.6); Lymphocytes # 1.8 10^3/uL (0.8-4.8); Lymphocytes % 14.7 %; Mean Corpuscular HGB Conc 34.8 g/dL (30.0-36.0); Mean Corpuscular Hemoglobin 35.2 pg (28.0-34.0); Mean Corpuscular Volume 101.2 fL (80-94); Mean Platelet Volume 10.1 fL (7.4-10.4); Monocytes # 0.8 10^3/uL (0.2-0.9); Monocytes % 6.3 %; Neutrophils # 9.12 10^3/uL (1.8-7.7); Neutrophils % 76.1 %; Nucleated Red Blood Cells % 0 %; Platelet Count 211 10^3/cmm (130-400); Red Blood Count 4.29 10^6/uL (4.1-5.3)
--- NOTE | 2019-12-16 08:00 | PC.NURSE ---
PT NOTE; SPOKE WITH CLIENTS SIGNIFICANT OTHER PER DR. MERAZ REQUEST TO ACQUIRE FURTHER INFORMATION ABOUT CLIENTS HISTORY OF DEPRESSION AND SUICIDALITY. SIGNIFICANT OTHER REPORTS CLIENT HAS NOT ATTEMPTED TO HARM HIMSELF IN THE PAST. SHE FURTHER REPORTS THAT HE HAS BEEN EXPERIENCING INCREASED STRESS AT WORK WHICH HAS IMPACTED HIS SITUATION NEGATIVELY. SHE REPORTS THAT SHE IS PART OF HIS SUPPORT SYSTEM AND THAT SHE FEELS HE WILL BE SAFE BACK IN THE HOME ENVIRONMENT. SIGNIFICANT OTHER REPORTS SHE WILL BE ABLE TO PICK HIM UP TODAY IF HE IS DISCHARGED FROM THE UNIT.
[2019-12-16] MEDS: nicotine 21 mg Patch 1 PATCH TRANSDERMA (08:27)
[2019-12-16] MEDS: multivitamin therapeutic Tablet 1 TAB PO (08:28)
[2019-12-16] MEDS: potassium chloride ER 10 mEq Tablet 40 MEQ PO (08:28)
[2019-12-16] MEDS: amoxicillin-clav 875-125 mg Tablet 1 TAB PO (08:28)
[2019-12-16] MEDS: folic acid 1 mg Tablet PO (08:28)
[2019-12-16] MEDS: docusate sodium 100 mg Capsule PO (08:28)
[2019-12-16] MEDS: thiamine 100 mg Tablet PO (08:28)
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
[2019-12-16 13:10] VITALS: BP 119/72; PULSE 67; RESP 18; TEMP 36.8; O2SAT 98
== END 2019-12-16 13:30 | disposition home or self-care (01) | DRG 918 ==
LOC: ER 05:28 → ICU 07:39 → NP 12-15 16:39
PROVIDERS: Emergency Medicine; Family Medicine; Admitting Provider Hospitalist; Visit Provider Psychiatry & Neurology Psychiatry
DX: T43.212A Poisoning by selective serotonin and norepinephrine reuptake inhibitors, intentional self-harm, initial encounter (principal); T17.898A Other foreign object in other parts of respiratory tract causing other injury, initial encounter; F33.2 Major depressive disorder, recurrent severe without psychotic features; F19.20 Other psychoactive substance dependence, uncomplicated; T42.6X2A Poisoning by other antiepileptic and sedative-hypnotic drugs, intentional self-harm, initial encounter; T42.0X2A Poisoning by hydantoin derivatives, intentional self-harm, initial encounter; T42.4X2A Poisoning by benzodiazepines, intentional self-harm, initial encounter; T51.0X2A Toxic effect of ethanol, intentional self-harm, initial encounter; F90.9 Attention-deficit hyperactivity disorder, unspecified type; R56.9 Unspecified convulsions; F17.210 Nicotine dependence, cigarettes, uncomplicated; E87.6 Hypokalemia; Z91.5 Personal history of self-harm; F43.10 Post-traumatic stress disorder, unspecified; F60.3 Borderline personality disorder; F63.81 Intermittent explosive disorder; F43.25 Adjustment disorder with mixed disturbance of emotions and conduct
CPT/HCPCS: 12345; 31500; 36415; 36416; 36600; 71045; 71270; 74018; 80051; 80053; 80185; 80306; 80307; 81001; 82550; 82810; 82962; 83605; 83735; 83986; 84132; 84439; 84484; 85025; 85610; 93005; 94002; 94003; 94664; 94799; 96372; 96375; 99284; J0330; J1650; J2060; J2704; J3010; J3480; J3490; J7030; J7799; Q9967

== ENCOUNTER 2019-12-31 00:41 | Emergency (ER) | payer SELFPAY ==
[2019-12-31] VITALS (43 sets, daily range): BP systolic 85–134; BP diastolic 43–90; PULSE 76–123; RESP 16–17; TEMP 37; O2SAT 92–100; BMI 25.7
--- NOTE | 2019-12-31 00:50 | XR_ITS ---
WS: [id number] PORTABLE CHEST HISTORY: Seizure activity. COMPARISON: 12/13/2019 Lungs are clear and well expanded. No pleural effusion or pneumothorax. Cardiac size: Normal. Mediastinum/Aorta: Normal mediastinum. No osseous abnormality seen. XR/XR chest 1V portable [id number] IMPRESSION: Unremarkable portable chest.
--- NOTE | 2019-12-31 00:50 | CTR_ITS ---
PROCEDURE INFORMATION: Exam: CT Head Without Contrast Exam date and time: 12/31/2019 1:24 AM Age: 34 years old Clinical indication: Condition or disease; Convulsions or seizures; Unspecified; Additional info: Sz TECHNIQUE: Imaging protocol: Computed tomography of the head without contrast. Radiation optimization: All CT scans at this facility use at least one of these dose optimization techniques: automated exposure control; mA and/or kV adjustment per patient size (includes targeted exams where dose is matched to clinical indication); or iterative reconstruction. COMPARISON: CT head wo con* [id number] 11/26/2019 7:33 PM RADIATION DOSE METRICS: Total DLP (mGy-cm): 754.5 FINDINGS: Limitations: Slight motion on a few slices. Brain: Still no apparent abnormal density in the brain. Still no hemorrhage. Continued increased CSF in the sella. Ventricles: Still no ventriculomegaly. Bones/joints: Still no skull fracture. Sinuses: Prominent interval decrease in the amount of mucosal thickening in several paranasal sinuses. Still no air-fluid levels in the visualized sinuses. Mastoid air cells: Visualized mastoids still unremarkable. Soft tissues: Unremarkable. CT/CT head wo con* [id number] IMPRESSION: 1. No acute findings. Continued increased CSF in the sella. 2. Interval prominent improvement in the chronic sinus disease. Radiation Dose CTDIVOL = (mGy): DLP = 754.5 (mGy-cm)
--- NOTE | 2019-12-31 00:50 | ECG_ITS ---
[facility] Test Date: 2019-12-31 Pat Name: Piyush Conway Department: Room: Gender: Male Quality Management Nurse: : 1985 Requested By: Keagan Briscoe Order Number: [id number] Teresa MD: Jennifer Richards M.D. Measurements Intervals [place] Rate: 106 P: 70 IL: 139 QRS: 68 QRSD: 99 T: 39 QT: 366 QTc: 487 Interpretive Statements SINUS TACHYCARDIA POSSIBLE LEFT ATRIAL ENLARGEMENT [-0.1mV P WAVE IN V1/V2] NONSPECIFIC T-WAVE ABNORMALITY ABNORMAL RHYTHM ECG Compared to ECG 12/13/2019 09:48:11 T-wave abnormality now present Sinus rhythm no longer present ST (T wave) deviation no longer present Early repolarization no longer present Electronically Signed On 01-01-2020 0:03:24 CDT by Jennifer Richards M.D. [id number]
[2019-12-31] MEDS: midazolam 1 mg/mL INJ 2 mL IVP (01:00)
[2019-12-31] MEDS: sodium chloride 0.9% 1,000 ML 999 ML IV ×2 (01:01→03:57)
[2019-12-31 01:07] LABS: Basophils # 0.1 10^3/uL (0.0-0.1); Basophils % 0.4 %; Eosinophils # 0.1 10^3/uL (0.0-0.8); Eosinophils % 0.6 %; Hemoglobin 16.7 g/dL (11.7-16.6); Lymphocytes # 4.8 10^3/uL (0.8-4.8); Lymphocytes % 31.1 %; Mean Corpuscular HGB Conc 34.8 g/dL (30.0-36.0); Mean Corpuscular Hemoglobin 33.7 pg (28.0-34.0); Mean Corpuscular Volume 96.8 fL (80-94); Mean Platelet Volume 10.1 fL (7.4-10.4); Monocytes % 6.5 %; Neutrophils # 9.34 10^3/uL (1.8-7.7); Neutrophils % 61.1 %; Nucleated Red Blood Cells % 0 %; Platelet Count 410 10^3/cmm (130-400); Red Blood Count 4.96 10^6/uL (4.1-5.3); Red Cell Distribution Width 11.9 % (12.1-15.1); White Blood Count 15.3 10^3/uL (4.0-10.0)
[2019-12-31 01:23] LABS: Alanine Aminotransferase 48 U/L (0-41); Albumin Level 4.6 g/dL (3.5-5.2); Alkaline Phosphatase 140 IU/L (40-130); Anion Gap 20.2 (5-19); Aspartate Amino Transferase 40 U/L (0-40); Blood Urea Nitrogen 6 mg/dL (6-20); Calcium 8.8 mg/dL (8.5-10.5); Carbon Dioxide 20 mmol/L (22-29); Chloride 103 mmol/L (98-107); Globulin 2.9 g/dL (1.3-4.6); Glomerular Filtration Rate 97.8 mL/min (90-130); Glucose 132 mg/dL (65-115); Magnesium 2.4 mg/dL (1.7-2.3); Osmolality Calculated 288 mOsm/kg (285-295); Phosphorus 2.6 mg/dL (2.5-4.5); Potassium 3.2 mmol/L (3.5-5.1); Salicylate 0.4 mg/dL (3-10); Sodium 140 mmol/L (136-145); Total Bilirubin 0.2 mg/dL (0.15-1.2); Total Protein 7.5 g/dL (6.6-8.7)
[2019-12-31 01:26] LABS: Acetaminophen < 5.0 ug/mL (10-30)
[2019-12-31 01:28] LABS: Alcohol Level 308 mg/dL (0-10)
[2019-12-31 01:45] LABS: Phenytoin Dilantin 0.8 ug/mL (10-20)
--- NOTE | 2019-12-31 02:01 | ED_ITS ---
HPI - Seizure General: Chief Complaint: Seizure Stated Complaint: seiz History of Present Illness: HPI Narrative: 34-year-old male with a history of recurrent and ongoing seizures. Report is that he is been out of his Dilantin for a while. He states that he has a prescription at [facility], but that it cost too much money to fill currently. He has had multiple seizures in the past few days. For yesterday, 2 at home today, and tomorrow [facility]. He is confused afterwards. He wakes up somewhat mildly combative and confused. This is the way he presents to the emergency department. complaint: seizure Onset (ago): hour(s) Description of Episode: loss of consciousness and tonic-clonic movement -: minutes(s) Witnessed: Yes - by Bystander Trauma: No Seizure History: Yes Place: Home Possible Precipitating Event: alcohol withdrawal (possibly) Associated symptoms: Reports confusion; Deny chest pain, fever(s) or short of breath Treatments prior to arrival: benzodiazepines Review of Systems Const: Denies: fever(s) Eyes: Reports: change in vision; Denies: blurry vision ENMT: Denies: swelling of lips/tongue or change in hearing Card: Denies: chest pain, palpitations or irregular heart rhythm Resp: Denies: dyspnea, productive cough, non-productive cough or wheezing GI: Denies: abdominal pain, nausea or vomiting : Denies: difficulty urinating or hematuria Musc: Denies: neck pain or back pain Skin/Breast: Denies: rash or erythema Neuro: Reports: confusion Psych: Denies: anxiety, visual hallucinations or auditory hallucinations PFS ED PFSH: Medical History (Updated 12/31/19 @ 04:41 by Keagan Lopez DO) Attention deficit hyperactivity disorder History of seizures Surgical History (Updated 12/13/19 @ 05:42 by Joana Archer MD) History of knee surgery Arthroscopy with reduction and internal fixation of a proximal tibial plateau fracture Social History Smoking and tobacco status: current every day smoker Physical Exam Const: GENERAL APPEARANCE: combative, ill appearing and odor of alcohol detected ORIENTATION/CONSCIOUSNESS: Yes oriented to person and Yes oriented to place; not oriented to time HENMT: COMMON NORMALS: normocephalic, external ears normal and Normal external nose present HEAD & SCALP: normocephalic FACE & SINUS: normal facial exam NOSE: Normal external nose present and No nasal discharge present EXTERNAL EAR: Yes external ears normal MOUTH: tongue normal THROAT: posterior oropharynx normal; no peritonsillar mass Eye: COMMON NORMALS: Equal, round and reactive pupils present, EOMs intact bilaterally and conjunctivae normal EYELID: eyelids normal CONJUNCTIVA: Yes conjunctivae normal PUPIL: Yes Equal, round and reactive pupils present Neck/C-Spine: COMMON NORMALS: full ROM GENERAL: No tracheal deviation CERVICAL SPINE: Yes normal cervical lordosis and No Cervical spine tenderness Chest: COMMONS NORMALS: normal inspection of the chest CHEST: No tenderness Resp: COMMON NORMALS: clear to auscultation bilaterally EFFORT & INSPECTION: No tachypneic, No respiratory distress, No retractions, No uses accessory muscles and No tracheal deviation AUSCULTATION: clear to auscultation bilaterally, no rhonchi, no wheezes and lung sounds not diminished Cardio: COMMON NORMALS: regular rhythm RATE: tachycardic RHYTHM: regular rhythm HEART SOUNDS: no murmurs PERIPHERAL PULSES: radial pulses present GI: INSPECTION: No abdominal distension AUSCULTATION: No Hyperactive bowel sounds present and No Hypoactive bowel sounds present PALPATION: No Guarding due to palpation present (GI) and No Rigid due to palpation PERCUSSION: no dullness to percussion and no tympanic to percussion Neuro: SENSORIUM/ORIENTATION: Yes oriented to person, Yes oriented to place and No oriented to time Psych: APPEARANCE: Yes unkempt ATTITUDE: Yes bizarre ACTIVITY/MOTOR BEHAVIOR: Yes fidgeting and Yes restless SPEECH: Yes slurred THOUGHT PROCESS: disorganized THOUGHT CONTENT: No Suicidality present, No Homicidality present and No Hallucination(s) present ATTENTION/CONCENTRATION: Yes attention grossly impaired Skin: COMMON NORMALS: no rashes or lesions noted GENERAL SKIN EXAM: no rashes or lesions noted Course Vital Signs: Vital signs: Vital Signs Temperature 98.6 F 12/31/19 00:45 Pulse Rate 76 12/31/19 04:09 Respiratory Rate 17 12/31/19 00:45 Blood Pressure 100/63 12/31/19 04:05 Pulse Oximetry 97 12/31/19 04:05 MDM - Seizure MDM Narrative: Medical decision making narrative: 34-year-old male with a history of seizure disorder. He comes in postictal. He had one seizure-like episode here. He was given Versed, and rested. He was loaded with Dilantin, as it is clear that he has not been taking his Dilantin. He notes that he has a prescription at [facility]. He now says that he can afford it and pick it up on Wednesday. No more seizures since he was loaded. He was very intoxicated, with an alcohol level of 300. His potassium is low which was repleted orally. He has been given some IV fluid. His other laboratories essentially benign. He is awake alert and talking now. He would like to be discharged. Lab Data: Attestation: I reviewed the patient's lab results. Labs: Lab Results 12/31/19 12/31/19 12/31/19 Range/Units 01:01 01:01 01:07 WBC 15.3 H (4.0-10.0) 10^3/ uL RBC 4.96 (4.1-5.3) 10^6/u L Hgb 16.7 H (11.7-16.6) g/dL Hct 48.0 (42.0-52.0) % MCV 96.8 H (80-94) fL MCH 33.7 (28.0-34.0) pg MCHC 34.8 (30.0-36.0) g/dL RDW 11.9 L (12.1-15.1) % Plt Count 410 H (130-400) 10^3/c mm MPV 10.1 (7.4-10.4) fL Neut % (Auto) 61.1 % Lymph % (Auto) 31.1 % [place] % (Auto) 6.5 % Eos % (Auto) 0.6 % Baso % (Auto) 0.4 % Neut # (Auto) 9.34 H (1.8-7.7) 10^3/u L Lymph # (Auto) 4.8 (0.8-4.8) 10^3/u L [place] # (Auto) 1.0 H (0.2-0.9) 10^3/u L Eos # (Auto) 0.1 (0.0-0.8) 10^3/u L Baso # (Auto) 0.1 (0.0-0.1) 10^3/u L Nucleated RBC % (a uto) 0 % Nucleated RBCs # 0.0 /100WBC Sodium 140 (136-145) mmol/L Potassium 3.2 L (3.5-5.1) mmol/L Chloride 103 (98-107) mmol/L Carbon Dioxide 20 L (22-29) mmol/L Anion Gap 20.2 H (5-19) BUN 6 (6-20) mg/dL Creatinine 0.9 (0.7-1.2) mg/dL GFR Calculation 97.8 (90-130) mL/min Glucose 132 H (65-115) mg/dL Calculated Osmolal ity 288 (285-295) mOsm/k g Calcium 8.8 (8.5-10.5) mg/dL Phosphorus 2.6 (2.5-4.5) mg/dL Magnesium 2.4 H (1.7-2.3) mg/dL Total Bilirubin 0.2 (0.15-1.2) mg/dL AST 40 (0-40) U/L ALT 48 H (0-41) U/L Alkaline Phosphata se 140 H (40-130) IU/L Total Protein 7.5 (6.6-8.7) g/dL Albumin 4.6 (3.5-5.2) g/dL Globulin 2.9 (1.3-4.6) g/dL Salicylates 0.4 L (3-10) mg/dL Acetaminophen < 5.0 L (10-30) ug/mL Phenytoin 0.8 L (10-20) ug/mL Ethyl Alcohol 308 H* (0-10) mg/dL Discharge Plan Discharge Patient Disposition: Home Clinical Impression: Generalized seizure Alcohol intoxication Qualifiers: Complication of substance-induced condition: with unspecified complication Qualified Code(s): F10.929 - Alcohol use, unspecified with intoxication, unspecified Condition: Stable Prescriptions: No Action Dilantin Extended 100 mg capsule 200 mg PO DAILY 30 Days Qty: 30 RF: 1 Discharge Orders: Discharge Order (Routine); Ordered 12/31/19 Ordered By: Keagan Lopez Discharge Diet: Advance as tolerated Discharge Activity: Limit activity as instructed Patient Instructions: Alcohol Intoxication (ED), Recurrent Seizures Adult (ED) Activity Restrictions/Additional Instructions: Return for recurrent episodes of seizure, fever, mental status changes, weakness, other concerning symptoms. Abstain from alcohol. Ensure that you fill your seizure medicine at the pharmacy on Wednesday. You have been loaded with Dilantin (your seizure medicine) while in the ER. Coding Level of Care Code ED Nutrition Worker for Yasmine Fwd Exam Comprehensive
[2019-12-31] MEDS: potassium chloride oral liq 20 mEq/15 mL UDC 40 MEQ PO (03:45)
--- NOTE | 2019-12-31 03:57 | PC.NURSE ---
nurse attempted to get patient up to stand, while sitting patient up in bed patient stated he was dizzy and felt like he was about to black out . Patient laid back in bed without attempting to stand by nurse.
[2019-12-31] MEDS: ondansetron 2 mg/ML SDV 2 mL 4 MG IVP (04:41)
== END 2019-12-31 05:00 | disposition home or self-care (01) ==
PROVIDERS: Emergency Provider Emergency Medicine
DX: G40.89 Other seizures (principal); F10.929 Alcohol use, unspecified with intoxication, unspecified; F17.210 Nicotine dependence, cigarettes, uncomplicated
CPT/HCPCS: 12345; 70450; 71045; 80053; 80185; 80307; 83735; 84100; 85025; 93005; 96361; 96365; 96375; 99284; J1165; J2250; J2405; J7030; J7050

== ENCOUNTER 2019-12-31 10:12 | Inpatient (IN) | payer SELFPAY ==
[2019-12-31 10:22] VITALS: BP 121/94; PULSE 86; RESP 18; TEMP 37.1; O2SAT 99; BMI 24.7
--- NOTE | 2019-12-31 11:01 | ECG_ITS ---
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 Measurements Intervals [place] Rate: 80 P: 17 PA: 143 QRS: 79 QRSD: 87 T: 74 QT: 364 QTc: 422 Interpretive Statements SINUS RHYTHM ST ELEVATION, PROBABLY EARLY REPOLARIZATION [ST ELEVATION WITH NORMALLY INFLECTED T WAVE] Compared to ECG 12/31/2019 01:16:08 ST (T wave) deviation now present Early repolarization now present Sinus tachycardia no longer present T-wave abnormality no longer present Electronically Signed On 01-01-2020 0:17:36 CDT by Jennifer Richards M.D. [id number]
[2019-12-31 11:58] LABS: Basophils # 0.1 10^3/uL (0.0-0.1); Basophils % 0.7 %; Eosinophils # 0.1 10^3/uL (0.0-0.8); Eosinophils % 0.8 %; Hematocrit 46.7 % (42.0-52.0); Lymphocytes # 3.6 10^3/uL (0.8-4.8); Lymphocytes % 31.6 %; Mean Corpuscular HGB Conc 34.3 g/dL (30.0-36.0); Mean Corpuscular Volume 99.4 fL (80-94); Mean Platelet Volume 10.3 fL (7.4-10.4); Monocytes # 0.9 10^3/uL (0.2-0.9); Monocytes % 8.2 %; Neutrophils # 6.59 10^3/uL (1.8-7.7); Neutrophils % 58.3 %; Nucleated Red Blood Cells % 0 %; Platelet Count 379 10^3/cmm (130-400); Red Cell Distribution Width 12.3 % (12.1-15.1); White Blood Count 11.3 10^3/uL (4.0-10.0)
[2019-12-31 12:09] LABS: Alanine Aminotransferase 54 U/L (0-41); Albumin Level 4.4 g/dL (3.5-5.2); Alkaline Phosphatase 131 IU/L (40-130); Anion Gap 15.6 (5-19); Aspartate Amino Transferase 58 U/L (0-40); Blood Urea Nitrogen 4 mg/dL (6-20); Calcium 8.4 mg/dL (8.5-10.5); Carbon Dioxide 23 mmol/L (22-29); Chloride 106 mmol/L (98-107); Globulin 2.7 g/dL (1.3-4.6); Glomerular Filtration Rate 97.8 mL/min (90-130); Glucose 127 mg/dL (65-115); Lipase 33 U/L (13-60); Osmolality Calculated 289 mOsm/kg (285-295); Potassium 3.6 mmol/L (3.5-5.1); Sodium 141 mmol/L (136-145); Total Bilirubin 0.2 mg/dL (0.15-1.2); Total Protein 7.1 g/dL (6.6-8.7)
[2019-12-31 12:11] LABS: Troponin(5th) Baseline 6 ng/L (0-15)
[2019-12-31 12:29] LABS: Add Urine Microscopic? NO
[2019-12-31 12:31] LABS: Specific Gravity, Urine 1.005 (1.005-1.030); Urine Appearance Clear (CLEAR); Urine Color Colorless (Yellow); pH Urine 6 (5-7)
[2019-12-31 12:32] LABS: Bilirubin Urine Neg (NEGATIVE); Blood Urine Neg (Negative); Glucose Urine UA Norm (Normal); Ketones Urine Negative (Negative); Leukocyte Esterase Urine Negative (Negative); Nitrate Urine Negative (Negative); Protein Urine Neg (Negative); Urobilinogen Urine Norm (Negative)
[2019-12-31 12:39] LABS: Amphetamines Screen Urine Negative (Negative); Barbiturates Screen Urine Positive (Negative); Benzodiazepines Screen Urine Negative (Negative); Cocaine Screen Urine Negative (Negative); Opiate Screen Urine Negative (Negative); PCP Screen Urine Negative (Negative); THC Screen Urine Negative (Negative)
--- NOTE | 2019-12-31 13:01 | ECG_ITS ---
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 Measurements Intervals [place] Rate: 71 P: 53 [place]: 139 QRS: 73 QRSD: 92 T: 64 QT: 373 QTc: 407 Interpretive Statements SINUS RHYTHM Compared to ECG 12/31/2019 01:16:08 Sinus tachycardia no longer present T-wave abnormality no longer present Electronically Signed On 01-01-2020 0:34:58 CDT by Jennifer Richards M.D. [email or web address] Cost Cutterschillicothe va medical [email or web address]/store/[id number]
[2019-12-31 13:12] LABS: Troponin 5 2HR Delta 0 ABS# (0-10)
--- NOTE | 2019-12-31 13:37 | W.ED.CHESTPA ---
HPI - Chest Pain General: Chief Complaint: Chest Pain Stated Complaint: CHEST PAIN Time Seen by Provider: 12/31/19 10:34 History of Present Illness: HPI narrative: This patient is a 34-year-old male who presents today with chest pain and seizures. He tells me that he has been having seizures over the last few days because of stress. He says had a blackout and does not remember what happens but his family tells him that before he blacked out today he complained of his chest hurting. He says he has a history of seizures for at least 10 years and is on Dilantin. He been off it for quite some time because of finances. He also has admitted to drinking quite a bit of alcohol. He has been upset over a break-up with his girlfriend. To me he denies any suicidal or homicidal ideations. His chest pain seems to be associated with stress however a work-up is in order. He was here last night for the seizures but did not get cardiac evaluation at that time as he did not mention chest pain. He apparently also was admitted a few weeks ago with an overdose attempt. MD complaint: chest pain and other (Seizures) Onset (ago): day(s) (2) Timing of current episode: episodic Onset: other (Associated with stress) Pain radiation: none Quality: other (Patient says he does not remember having the episode as it occurred right before a seizure) Associated symptoms: Deny abdominal pain, dyspnea, fever(s), nausea or vomiting Review of Systems General: Reports: 10 or more systems reviewed and unremarkable except in HPI and below Const: Denies: fever(s), chills, fatigue or malaise Eyes: Denies: change in vision ENMT: Denies: odynophagia Card: Reports: chest pain; Denies: swelling of feet/ankles Resp: Denies: dyspnea, productive cough or non-productive cough GI: Denies: abdominal pain, nausea or vomiting : Denies: flank pain Musc: Denies: neck pain or back pain Skin/Breast: Denies: rash Neuro: Reports: seizure-like activity; Denies: headache(s), numbness in extremities or weakness in extremities Psych: Reports: anxiety and other (Patient denies suicidal or homicidal ideation however there are affidavits to the contrary) Jesús/Lymph: Denies: easy bruising or easy bleeding COUNT INCLUDES THE [facility] ED PFSH: Medical History Attention deficit hyperactivity disorder History of seizures Surgical History History of knee surgery Arthroscopy with reduction and internal fixation of a proximal tibial plateau fracture Social History Smoking and tobacco status: current every day smoker Physical Exam Const: COMMON NORMALS: no acute distress, patient oriented x3, no limitations and alert GENERAL APPEARANCE: cooperative and comfortable HENMT: HEAD & SCALP: normal to inspection FACE & SINUS: normal facial exam Eye: GENERAL EYE: appearance normal, both eyes and all related structures Neck/C-Spine: COMMON NORMALS: supple, no meningeal signs and no JVD Chest: COMMONS NORMALS: normal inspection of the chest Resp: COMMON NORMALS: normal respiratory effort, No use of accessory muscles and clear to auscultation bilaterally AUSCULTATION: clear to auscultation bilaterally Cardio: COMMON NORMALS: no JVD, regular rate, regular rhythm and No murmurs present (Cardio) RATE: regular rate RHYTHM: regular rhythm GI: COMMON NORMALS: Normal to inspection, nondistended, normoactive bowel sounds present, Soft to palpation and non-tender INSPECTION: Yes normal to inspection AUSCULTATION: Yes normoactive bowel sounds PALPATION: Yes Soft to palpation Back/Pelvis: COMMON NORMALS: thoracic and lumbar spine normal to inspection Extremity: COMMON NORMALS: normal to inspection Neuro: COMMON NORMALS: patient oriented x3, moves all extremities, no focal motor deficits and no sensory deficits noted SENSORIUM/ORIENTATION: Yes alert MENINGEAL SIGNS: Yes no meningeal signs Psych: COMMON NORMALS: mental status grossly normal, normal affect, denies homicidal ideation and denies suicidal ideation MOOD & AFFECT: Yes depressed mood and Yes anxious Skin: COMMON NORMALS: no rashes or lesions noted and turgor normal GENERAL SKIN EXAM: no rashes or lesions noted and turgor normal Course ED course: 3 people came in and wrote affidavit stating that the patient has made suicidal and homicidal statements in the past day. The patient denies that. Given that I have the affidavits I will have to hold him unless he can be assessed by the psychiatrist and released or admitted depending on the impression of the psychiatrist. I have a call into Dr. Sims to see if he would like to do that in the ED or whether I should meet the patient to the CONSERVATION TECHNICIAN you for further evaluation. His cardiac work-up is negative. He said no evidence of any seizure activity or neurologic issues here in the ED. Reevaluation(s): Reevaluation #1: After I spoke to the patient and explained this to him, including that if he chose to leave the ER that the police would go and bring him back on a 96-hour hold, he eloped from the ER without seeing anything to the staff. Please been notified and will bring him back. Vital Signs: Vital signs: Vital Signs Temperature 97.0 F L 01/03/20 14:00 Pulse Rate 100 01/03/20 14:00 Respiratory Rate 20 H 01/03/20 14:00 Blood Pressure 102/71 01/03/20 14:00 Pulse Oximetry 96 01/03/20 14:00 MDM - Chest Pain MDM Narrative: Medical decision making narrative: Stress related heart issues, arrhythmias, psychogenic, epileptic seizures. Lab Data: Labs: Lab Results 12/31/19 12/31/19 12/31/19 Range/Units 10:47 10:47 10:47 WBC 11.3 H (4.0-10.0) 10^3/ uL RBC 4.70 (4.1-5.3) 10^6/u L Hgb 16.0 (11.7-16.6) g/dL Hct 46.7 (42.0-52.0) % MCV 99.4 H (80-94) fL MCH 34.0 (28.0-34.0) pg MCHC 34.3 (30.0-36.0) g/dL RDW 12.3 (12.1-15.1) % Plt Count 379 (130-400) 10^3/c mm MPV 10.3 (7.4-10.4) fL Neut % (Auto) 58.3 % Lymph % (Auto) 31.6 % [place] % (Auto) 8.2 % Eos % (Auto) 0.8 % Baso % (Auto) 0.7 % Neut # (Auto) 6.59 (1.8-7.7) 10^3/u L Lymph # (Auto) 3.6 (0.8-4.8) 10^3/u L [place] # (Auto) 0.9 (0.2-0.9) 10^3/u L Eos # (Auto) 0.1 (0.0-0.8) 10^3/u L Baso # (Auto) 0.1 (0.0-0.1) 10^3/u L Nucleated RBC % (a uto) 0 % Nucleated RBCs # 0.0 /100WBC Sodium 141 (136-145) mmol/L Potassium 3.6 (3.5-5.1) mmol/L Chloride 106 (98-107) mmol/L Carbon Dioxide 23 (22-29) mmol/L Anion Gap 15.6 (5-19) BUN 4 L (6-20) mg/dL Creatinine 0.9 (0.7-1.2) mg/dL GFR Calculation 97.8 (90-130) mL/min Glucose 127 H (65-115) mg/dL Calculated Osmolal ity 289 (285-295) mOsm/k g Calcium 8.4 L (8.5-10.5) mg/dL Total Bilirubin 0.2 (0.15-1.2) mg/dL AST 58 H (0-40) U/L ALT 54 H (0-41) U/L Alkaline Phosphata se 131 H (40-130) IU/L Troponin T Baselin e 6 (0-15) ng/L Troponin T 120 Min [place] (0-15) ng/L Delta Troponin T (0-10) ABS# Total Protein 7.1 (6.6-8.7) g/dL Albumin 4.4 (3.5-5.2) g/dL Globulin 2.7 (1.3-4.6) g/dL Lipase 33 (13-60) U/L Urine Color (Yellow) Urine Appearance (CLEAR) Urine pH (5-7) Ur Specific Gravit y (1.005-1.030) Urine Protein (Negative) Urine Glucose (UA) (Normal) Urine Ketones (Negative) Urine Blood (Negative) Urine Nitrate (Negative) Urine Bilirubin (NEGATIVE) Urine Urobilinogen (Negative) mg/dL Ur Leukocyte Skylar ase (Negative) Urine Opiates Scre en (Negative) ng/mL Ur Barbiturates Sc reen (Negative) ng/mL Ur Phencyclidine S crn (Negative) ng/mL Ur Amphetamines Sc reen (Negative) ng/mL U Benzodiazepines Scrn (Negative) ng/mL Urine Cocaine Scre en (Negative) ng/mL U Marijuana (THC) Screen (Negative) ng/mL 12/31/19 12/31/19 12/31/19 Range/Units 11:29 11:29 12:40 WBC (4.0-10.0) 10^3/ uL RBC (4.1-5.3) 10^6/u L Hgb (11.7-16.6) g/dL Hct (42.0-52.0) % MCV (80-94) fL MCH (28.0-34.0) pg MCHC (30.0-36.0) g/dL RDW (12.1-15.1) % Plt Count (130-400) 10^3/c mm MPV (7.4-10.4) fL Neut % (Auto) % Lymph % (Auto) % [place] % (Auto) % Eos % (Auto) % Baso % (Auto) % Neut # (Auto) (1.8-7.7) 10^3/u L Lymph # (Auto) (0.8-4.8) 10^3/u L [place] # (Auto) (0.2-0.9) 10^3/u L Eos # (Auto) (0.0-0.8) 10^3/u L Baso # (Auto) (0.0-0.1) 10^3/u L Nucleated RBC % (a uto) % Nucleated RBCs # /100WBC Sodium (136-145) mmol/L Potassium (3.5-5.1) mmol/L Chloride (98-107) mmol/L Carbon Dioxide (22-29) mmol/L Anion Gap (5-19) BUN (6-20) mg/dL Creatinine (0.7-1.2) mg/dL GFR Calculation (90-130) mL/min Glucose (65-115) mg/dL Calculated Osmolal ity (285-295) mOsm/k g Calcium (8.5-10.5) mg/dL Total Bilirubin (0.15-1.2) mg/dL AST (0-40) U/L ALT (0-41) U/L Alkaline Phosphata se (40-130) IU/L Troponin T Baselin e (0-15) ng/L Troponin T 120 Min [place] 6.00 (0-15) ng/L Delta Troponin T 0 (0-10) ABS# Total Protein (6.6-8.7) g/dL Albumin (3.5-5.2) g/dL Globulin (1.3-4.6) g/dL Lipase (13-60) U/L Urine Color Colorless (Yellow) Urine Appearance Clear (CLEAR) Urine pH 6 (5-7) Ur Specific Gravit y 1.005 (1.005-1.030) Urine Protein Neg (Negative) Urine Glucose (UA) Norm (Normal) Urine Ketones Negative (Negative) Urine Blood Neg (Negative) Urine Nitrate Negative (Negative) Urine Bilirubin Neg (NEGATIVE) Urine Urobilinogen Norm (Negative) mg/dL Ur Leukocyte Skylar ase Negative (Negative) Urine Opiates Scre en Negative (Negative) ng/mL Ur Barbiturates Sc reen Positive H (Negative) ng/mL Ur Phencyclidine S crn Negative (Negative) ng/mL Ur Amphetamines Sc reen Negative (Negative) ng/mL U Benzodiazepines Scrn Negative (Negative) ng/mL Urine Cocaine Scre en Negative (Negative) ng/mL U Marijuana (THC) Screen Negative (Negative) ng/mL Discharge Plan Discharge Patient Disposition: Admitted As Inpatient Admit Provider: Toi Sims Condition: Stable Referrals: [facility] [Other] (Residential treatment for alcohol is recommended for you. A ministry such as [facility] would be a good option. If interested please call and discuss the program with a staff member. They will give you information on the process. In order to be accepted into the program you would need to do a phone interview then attend Wednesday services and speak to someone after the service in person.) [facility] [Outside] - 1-3 days (Resource for outpatient mental health services. Call to get information on doing a walk-in assessment. Typically this is done Wednesday-Wednesday from 7:30am-2:00pm but procedure varies due to COVID restrictions so it would be recommended to call first.) [facility] [Outside] (Homeless skilled nursing-resource) [facility] [Outside] (Resource for inpatient and outpatient substance abuse treatment. Call for information.) Irina Schafer MD [Physician] - (Appointment for 01/02/20 was cancelled due to hospitalization. Have requested a new appointment from them. Please call for new appointment date.) Patient Instructions: Phenytoin (By mouth), Thiamine (Vitamin B-1) (By mouth), Folic Acid (By mouth), Multivitamins, Adult Formula (By mouth) Discharge Date/Time: 12/31/19 15:15 Coding Level of Care Code ED Mold Forms Builder for Chg Fwd Exam Comprehensive
--- NOTE | 2019-12-31 14:22 | PC.NURSE ---
pt brought back by the [facility]. pt was placed in paper scrubs and 1:1 sitter is at bedside. Abhijit Griffiths will assume care of pt.
[2019-12-31 15:13] VITALS: BP 126/70; PULSE 70; RESP 14; O2SAT 98
[2019-12-31 15:22] VITALS: BP 135/96; PULSE 88; RESP 18; TEMP 37.1; O2SAT 98
[2019-12-31] MEDS: nicotine 21 mg Patch 1 PATCH TRANSDERMA (15:41)
--- NOTE | 2019-12-31 17:01 | ECG_ITS ---
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 Measurements Intervals [place] Rate: 81 P: 51 [place]: 142 QRS: 71 QRSD: 90 T: 50 QT: 364 QTc: 424 Interpretive Statements SINUS RHYTHM Compared to ECG 12/31/2019 12:57:03 No significant changes Electronically Signed On 01-01-2020 0:41:58 CDT by Jennifer Richards M.D. [email or web address] [id number]
[2019-12-31 21:31] VITALS: BP 124/82; PULSE 76; RESP 20; TEMP 37.4; O2SAT 97
--- NOTE | 2019-12-31 22:27 | PC.NURSE ---
pt offered prn sleep and anxiety meds, but refused.
[2020-01-01 06:00] VITALS: BP 117/77; PULSE 69; RESP 17; TEMP 36.5; O2SAT 98
--- NOTE | 2020-01-01 12:56 | PC.RESP ---
SMOKING CESSATION INFORMATION SENT TO PATIENT.
[2020-01-01 14:00] VITALS: BP 114/77; PULSE 75; RESP 20; TEMP 37.3; O2SAT 97
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
--- NOTE | 2020-01-01 15:29 | PC.SOCIAL ---
mom called and provided collateral information (mom Amanda Vega [phone]): 1) mom states that she can't have him there. she does not know where he will go upon discharge. 2) son has alcohol issues and drug issues. he overdosed a couple of weeks ago,says mom 3) son usually says it is someone else's fault. 4) son drinks paycheck up 5) biological dad lied a lot. it seems like son does the same even though he was not raised by him 6) son has past hx of bipolar and adhd 7)there's been a restraining order against him 8)very worried about son but does not want to keep on doing what she is doing.
[2020-01-01] MEDS: OLANZapine 5 mg ODT PO (19:29)
--- NOTE | 2020-01-01 19:31 | PC.NURSE ---
Pt noted with s/s of withdrawal by RN. RN requested pt be scored for CIWA, and medicated. Pt notes to not have CIWA meds orderede, Zyprexa 5mg po given at this time.
[2020-01-01] MEDS: nicotine 2 mg Gum BUCCAL (20:12)
--- NOTE | 2020-01-01 20:20 | PC.NURSE ---
Dr Pedraza notified that pt is showing s/s of withdrawal such as tremors, anxiety, diaphoresis, and chest tightness. RN requested pt be medicated for CIWA. Pt noted with no CIWA meds. Inquire made to be able to put pt on CIWA protocol. Order approved, be sure to chart on pt thoroughly. Pt stated he is feeling much better at this time. No s/s of withdrawal noted at this time.
[2020-01-01] MEDS: trazodone 50 mg Tablet PO (21:04)
[2020-01-01] MEDS: hyDROXYzine 25 mg Capsule 50 MG PO (21:04)
[2020-01-01 22:00] VITALS: BP 128/87; PULSE 67; RESP 16; TEMP 36.4; O2SAT 94
[2020-01-02 06:00] VITALS: BP 111/68; PULSE 64; RESP 16; TEMP 36.8; O2SAT 96
[2020-01-02 06:55] LABS: Phenytoin Dilantin 6.5 ug/mL (10-20)
[2020-01-02] MEDS: multivitamin therapeutic Tablet 1 TAB PO (10:41)
[2020-01-02] MEDS: thiamine 100 mg Tablet PO (10:41)
[2020-01-02] MEDS: folic acid 1 mg Tablet PO (10:41)
--- NOTE | 2020-01-02 12:34 | P.PN_ITS ---
Subjective NPU Subjective: Interval history: Patient continues to insist that he does not have an alcohol problem. Patient continues to insist that he is not actually going through alcohol withdrawal but this is anxiety. However he does put up only token resistance to him remaining in the hospital another couple days while the alcohol withdrawal has resolved. He states that he has no interest in going to a rehab program and does not feel that he needs it. He is aware of services at [facility]. He does want a referral for services at behavioral health care. Mental Status Exam MSE Comments: Mental Status Exam: Appearance: hygiene is fair; no gross neurological deficits., gait is unremark able; AIMS=0 Speech: Speech is of normal rate and rhythm and easily understood. Thought processes: Thought processes are abstract. Judgment is adequate for safety. Associations: intact Psychotic processes: There is no indication of guarding or paranoia. There is no attention to the internal stimuli. Auditory and visual hallucinations are denied. Judgment: Insight is extremely poor. Problem solving skills are adequate for safety. Orientation: The patient is oriented to person, place time and situation. Memory: no deficits noted in immediate, intermediate, or remote spheres. Attention: The patient is alert and interpersonally engaged. Language: Verbalizations are coherent. Fund of knowledge: Fund of knowledge is fair to poor. Affect/Mood: Affect is consistent with a euthymic mood. Denied suicidal ideation Affective range is appropriate. Psychosis: perception unimpaired except through cognitive distortion; reality testing intact. Cognition: Patient Appearance: Appropriate Level of Consciousness: Awake, Alert and Appropriate Patient Cognition Impaired: No Patient Orientation (long list): Person, Place and Time Comprehension Ability: Understands Concepts Hallucination Type: None Delusion Description: Not Present Thought Process: Appropriate Affect: Affect Description: Calm Behavior: Patient Behavior: Cooperative Speech Pattern: Clear Vitals/I&O/Wt Last Vital Signs Temp 98.3 F 01/02/20 06:00 Pulse 64 01/02/20 06:00 Resp 16 01/02/20 06:00 BP 111/68 01/02/20 06:00 Pulse Ox 96 01/02/20 06:00 Data NPU : 12/31/19 10:47 12/31/19 10:47 A&P Additional A&P Information Diagnoses: Alcohol intoxication Alcohol abuse Antisocial personality traits Provisional?seizure disorder At this point, there really is no objective data that indicates that he in fact does have seizures. We have to diametrically opposed descriptions of his behavior over the past 5 days. The weight of evidence supports the report that he has been acting in an erratic potentially dangerous manner associated with his binge use of alcohol. Whether that constitutes an imminent risk to self or others has yet to be demonstrated. We will continue to investigate. Hospital day #3: The patient did begin demonstrating significant signs and symptoms of alcohol withdrawal last night. He was placed on an alcohol withdrawal protocol. Again, in spite of 3 affidavits that indicate a significant problem with alcohol abuse and its sequelae, blood alcohol level that would be consistent with alcohol abuse, in the presence of symptoms associated with alcohol withdrawal, the patient insists that he does not have an alcohol problem. Plan: At this time he will remain on the alcohol withdrawal protocol until he is no longer felt to be a threat to self or others. He will again be offered access to a rehabilitation program services but he will likely continue to decline. due to the psychiatric conditions and treatment listed in the Assessment and Korina n - the patient requires continued hospitalization. Will provide a safe and therapeutic environment for patient.. Will continue inpatient treatment to allow for medication adjustment and monitoring. Will continue q15 min safety checks. Will continue current medications and monitor for medication side effects. Monitor patient's mood, sleep, appetite, and behavior closely. Encourage patient to participate in individual and group therapeutic sessions on the alford. Estimated length of stay 5 days The expected benefits and potential side effects of patient's psychiatric medications were discussed with the patient. The patient understands and consents to treatment. CRITERIA FOR DISCHARGE: stable on medications and no longer an imminent threat to self or others Involuntary Hold Information 96 Hour Hold: 96 Hour Involuntary Admission: Yes 96 Hour Hold Ending Date: 12/31/19 96 Hour Hold Ending Time: 15:20 Attestations NPU Medical Necessity Statement*: Patient will remain in the hospital another 2-3 nights for the completion of his 96-hour involuntary commitment. Coding Level of Care Code Acute Edge Inker for Yasmine Chavez
[2020-01-02] MEDS: nicotine 21 mg Patch 1 PATCH TRANSDERMA (13:36)
[2020-01-02 14:00] VITALS: BP 113/73; PULSE 72; RESP 18; TEMP 36.2; O2SAT 97
[2020-01-02] MEDS: hyDROXYzine 25 mg Capsule 50 MG PO (20:58)
[2020-01-02] MEDS: trazodone 50 mg Tablet PO (20:58)
--- NOTE | 2020-01-02 21:40 | PC.NURSE ---
Prns given Trazadone 50mg PO for rest Visteril 50mg PO for anxiety Will continue to monitor
[2020-01-02 22:00] VITALS: BP 130/70; PULSE 81; RESP 18; TEMP 36.8; O2SAT 98
[2020-01-03 06:00] VITALS: BP 99/68; PULSE 60; RESP 16; TEMP 36.6; O2SAT 97
[2020-01-03] MEDS: multivitamin therapeutic Tablet 1 TAB PO (08:12)
[2020-01-03] MEDS: folic acid 1 mg Tablet PO (08:12)
[2020-01-03] MEDS: thiamine 100 mg Tablet PO (08:12)
[2020-01-03 13:26] VITALS: BP 102/71; PULSE 100; RESP 20; TEMP 36.1; O2SAT 96
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
[2020-01-03 14:00] VITALS: BP 102/71; PULSE 100; RESP 20; TEMP 36.1; O2SAT 96
--- NOTE | 2020-01-03 14:33 | PC.NURSE ---
DISCHARGE MEDS CALLED INTO [facility] @[phone], spoke to Heladio the pharmacy technician program director
== END 2020-01-03 14:55 | disposition home or self-care (01) | DRG 897 ==
LOC: ER 10:39 → NP 15:02
PROVIDERS: Emergency Medicine; Psychiatry & Neurology Psychiatry; Admitting Provider Psychiatry & Neurology Psychiatry; Visit Provider Psychiatry & Neurology Psychiatry
DX: F10.229 Alcohol dependence with intoxication, unspecified (principal); Y90.8 Blood alcohol level of 240 mg/100 ml or more; F90.9 Attention-deficit hyperactivity disorder, unspecified type; F17.210 Nicotine dependence, cigarettes, uncomplicated; F60.2 Antisocial personality disorder; F43.25 Adjustment disorder with mixed disturbance of emotions and conduct
CPT/HCPCS: 12345; 36415; 80053; 80185; 80306; 81003; 83690; 84484; 85025; 93005; 96372; 99284; J3411